=== PATIENT | female | born 1960 | race Caucasian/White ===

== ENCOUNTER 2024-07-22 08:36 | Outpatient (RCR) | payer MEDICARE, MEDICAID, SELFPAY | END 2024-07-26 23:59 | disposition home or self-care (01) | LOC: SCTC 08:36 | PROVIDERS: PCP Physician Assistant; Referring Provider Physician Assistant; Visit Provider Nurse Practitioner Family | DX: C50.812 Malignant neoplasm of overlapping sites of left female breast (principal); Z17.0 Estrogen receptor positive status [ER+]; Z17.21 Progesterone receptor positive status; Z17.32 Human epidermal growth factor receptor 2 negative status; Z90.12 Acquired absence of left breast and nipple; M85.80 Other specified disorders of bone density and structure, unspecified site | CPT/HCPCS: 99212; G0463 ==

== ENCOUNTER → 2024-08-13 | Outpatient (CLI) | payer MEDICARE, MEDICAID, SELFPAY ==
--- NOTE | 2024-08-13 14:00 | ECHO_ITS ---
Transthoracic Echo Report Ht (in): 60 Wt (lb): 174 Exam Location: Echo Lab Status: Preadmit Staple Laster: Rosa Guillen Indications: Procedure Performed: BP: / HR: Rhythm: Sinus Technical Quality: Fair MEASUREMENTS (Male / Female) Normal Values 2D ECHO LV Diastolic Diameter PLAX 3.5 cm 4.2 - 5.9 / 3.9 - 5.3 cm LV Systolic Diameter PLAX 2.5 cm IVS Diastolic Thickness 1.0 cm 0.6 - 1.0 / 0.6 - 0.9 cm LVPW Diastolic Thickness 1.0 cm 0.6 - 1.0 / 0.6 - 0.9 cm LV Relative Wall Thickness 0.6 LVOT Diameter 1.9 cm LA Volume Index 27.3 cm?/m? 16 - 28 cm?/m? Ascending Aorta Diameter 3.1 cm M-MODE Aortic Root Diameter MM 3.0 cm LA Systolic Diameter MM 3.7 cm LA Ao Ratio MM 1.2 AV Cusp Separation MM 2.2 cm DOPPLER AV Peak Velocity 116.0 cm/s AV Peak Gradient 5.4 mmHg AV Mean Gradient 3.0 mmHg AV Velocity Time Integral 23.0 cm LVOT Peak Velocity 89.4 cm/s LVOT Peak Gradient 3.2 mmHg LVOT Velocity Time Integral 18.7 cm AV Area Cont Eq vti 2.3 cm? AV Area Cont Eq pk 2.2 cm? MV Peak Velocity 93.3 cm/s MV Peak Gradient 3.5 mmHg MV Mean Velocity 51.4 cm/s MV Mean Gradient 1.0 mmHg MV Area PHT 3.4 cm? Mitral E Point Velocity 59.7 cm/s Mitral A Point Velocity 92.2 cm/s Mitral E to A Ratio 0.6 LV E' Lateral Velocity 8.8 cm/s Mitral E to LV E' Lateral Ratio 6.8 LV E' Septal Velocity 5.3 cm/s Mitral E to LV E' Septal Ratio 11.2 TR Peak Velocity 159.0 cm/s TR Peak Gradient 10.1 mmHg FINDINGS Left Ventricle Normal left ventricular size, wall thickness, systolic function with no obvious regional wall motion abnormalities. The ejection fraction is visually estimated at 55-60%. Right Ventricle The right ventricle is normal in size and systolic function. The estimated right ventricular systoli c pressure, 15 mmHg. RAP 5. Left Atrium The left atrium is normal by two-dimensional, color flow and Doppler imaging with no structural abnormalities, no thrombus formation present. Right Atrium The right atrium is normal by two-dimensional imaging, color flow and Doppler imaging with no struct ural abnormalities, no thrombus formation present. Atrial Septum The interatrial septum appears normal with no evidence of a shunt. Aorta The aorta is normal by two-dimensional, color flow and Doppler interrogation. Mitral Valve The mitral valve is normal by two-dimensional, color flow and Doppler interrogation. There is trace mitral valve regurgitation. Aortic Valve The aortic valve is trileaflet and normal by two-dimensional, color flow and Doppler interrogation. There is no significant aortic valve regurgitation. Tricuspid Valve The tricuspid valve is normal by two-dimensional, color flow and Doppler interrogation. There is tra ce tricuspid valve regurgitation. Pulmonic Valve There is no significant pulmonic valve regurgitation. Vessels The pulmonary artery appears normal. The inferior vena cava pulmonary and hepatic veins appear gee l. Pericardium The pericardium is normal by two-dimensional imaging. There is no significant pericardial effusion. CONCLUSIONS Indication: Malignant neoplasm left female breast. Normal LV size and function. Stage I diastolic dysfunction. Estimated EF 55-60% Normal RV size and function. Trace MR, TR. Noe Carlisle (Electronically Signed) Final Date: 14 August 2024 18:03
== END | disposition home or self-care (01) ==
LOC: SDIM 13:58
PROVIDERS: PCP Physician Assistant; Referring Provider Internal Medicine Hematology & Oncology; Visit Provider Internal Medicine Hematology & Oncology
DX: I08.1 Rheumatic disorders of both mitral and tricuspid valves (principal); C50.212 Malignant neoplasm of upper-inner quadrant of left female breast
CPT/HCPCS: 93306

== ENCOUNTER 2024-09-05 14:40 | Emergency (ER) | payer MEDICAID, SELFPAY ==
[2024-09-05 14:41] VITALS: BMI 34.2
[2024-09-05 14:58] VITALS: BP 156/98; PULSE 84; RESP 20; TEMP 38.2; O2SAT 95
--- NOTE | 2024-09-05 15:13 | XR_ITS ---
Examination: PA lateral chest 2 views TECHNIQUE: Upright PA lateral chest 2 views Exam date and time: September 05, 2024 1537 hours INDICATIONS: Onset chest pain today. FINDINGS: Normal heart size Subsegmental atelectasis left base Increased AP dimension chest Kyphosis dorsal spine No lobar pneumonia or pulmonary edema IMPRESSION: Hyperexpansion No lobar pneumonia or pulmonary edema
--- NOTE | 2024-09-05 15:13 | PD.EDRME ---
Rapid Medical Screening Exam RME Arrival date/time: 09/05/24 14:40 63-year-old female presents to the emergency department complaints of abdominal pain and fever Chief Complaint: Flu Like Symptoms Time Seen by Provider: 09/05/24 14:42 Vital signs: Vital Signs Temperature 100.8 F H 09/05/24 14:58 Pulse Rate 84 09/05/24 14:58 Respiratory Rate 20 09/05/24 14:58 Blood Pressure 156/98 H 09/05/24 14:58 Pulse Oximetry (%) 95 09/05/24 14:58 Oxygen Delivery Method Room Air 09/05/24 14:58
[2024-09-05 15:25] VITALS: TEMP 38.2
[2024-09-05] MEDS: ACETAMINOPHEN 500 MG TABLET 1000 MG PO (15:25)
[2024-09-05 16:59] LABS: Lactate (Lactic Acid) 1.1 mMol/L (0.4-2.0)
[2024-09-05 17:01] LABS: Basophils % (Auto) 0 % (0-2.5); Eosinophils % (Auto) 0 % (0-10); Hematocrit 37.1 % (36.0-46.0); Hemoglobin 12.7 g/dL (12.0-16.0); Immature Granulocytes % (Auto) 0 % (0-0); Immature Granulocytes Auto 0.04 Thou/mm3 (0.00-0.00); Lymphocytes # (Auto) 1.6 Thou/mm3 (1.0-4.8); Lymphocytes % (Auto) 11 % (10-50); Mean Corpuscular HGB Conc 34.2 g/dl (31.0-37.0); Mean Corpuscular Hemoglobin 27.9 pg (25.0-35.0); Mean Corpuscular Volume 82 fL (80-100); Monocytes # (Auto) 1.6 Thou/mm3 (0.0-0.8); Monocytes % (Auto) 11 % (0-12); Neutrophils # (Auto) 11.1 Thou/mm3 (1.8-7.7); Neutrophils % (Auto) 78 % (37-80); Nucleated Red Blood Cell % 0 /100 WBC (0); Platelet Count 175 Thou/mm3 (140-440); RDW Standard Deviation 42.4 fL (36.4-46.3); Red Blood Count 4.55 Miln/mm3 (4.00-5.20); White Blood Count 14.3 Thou/mm3 (3.6-11.0)
[2024-09-05 17:27] LABS: Alanine Aminotransferase 33 U/L (10-49); Albumin, Serum 4.3 gm/dL (3.4-4.8); Albumin/Globulin Ratio 1.6 (1.2-2.2); Alkaline Phosphatase 117 U/L (46-116); Anion Gap 8 (7-16); Aspartate Amino Transferase 32 U/L (0-34); BUN/Creatinine Ratio 16 Ratio (12-20); Blood Urea Nitrogen 23 mg/dL (9-23); Carbon Dioxide 22.7 mMol/L (20.0-31.0); Chloride 99 mMol/L (98-107); Creatinine (Component) 1.4 mg/dL (0.6-1.3); Estimated Creatinine Clearance 39.3 mL/min (>60); Globulin 2.7 gm/dL (2.3-3.5); Glucose 118 mg/dL (74-106); Osmolality,Calculated 265 (275-295); Potassium 3.9 mMol/L (3.4-5.1); Procalcitonin 0.88 ng/ml (0.0-0.49); Sodium 130 mMol/L (136-145); eGFR 43 See Note
[2024-09-05 18:32] LABS: Collection Type, Urine Clean Catch
[2024-09-05 18:52] LABS: Bilirubin,Urine Negative (Negative); Blood,Urine 1+ (Negative); Clarity,Urine Turbid (Clear/Hazy); Color,Urine Yellow (Lt Yel-Yel); Glucose, Urine Negative (Negative); Ketones,Urine Negative (Negative); Leukocyte Esterase,Urine Positive (Negative); Nitrite,Urine Negative (Negative); PH,Urine 5.5 (5.0-7.0); Protein,Urine 1+ (Neg - Trace); RBC,Urine 7 /hpf (0-3); Squamous Epithelial Cell,Urine 5 /hpf (0-5); Urobilinogen,Urine Negative mg/dL (0.0-1.0); WBC,Urine 47 /hpf (0-5)
--- NOTE | 2024-09-05 19:12 | EDNOTE_ITS ---
Upper Respiratory Inf. RME/HPI General Chief Complaint: Flu Like Symptoms Stated Complaint: CHILLS/ABD PAIN X 3 DAYS Time Seen by Provider: 09/05/24 14:42 Arrival date/time: 09/05/24 14:40 RME / HPI RME / HPI Narrative: 09/05/24 14:40 63-year-old female presents to the emergency department complaints of abdominal pain and fever ---- Dr. Juarez?s Main ED Evaluation: 63yo female with a history of breast CA s/p c ompletion of chemotherapy and radiation in 2023 accompanied by her presents to the ED for a chief complaint of fever and chills x 4 days. Patient states she's been having chills for the last four days, reporting she has lower abdominal pain this week due to having a prolapsed uterus. She reports associated dysuria, pyuria and nocturia 3-4x per night. She reports associated nausea. She denies any vomiting, runny nose, cough or any other associated symptoms. Related Data Home Medications ?Medication ?Instructions ?Recorded ?Confirmed atorvastatin 20 mg tablet 20 mg PO HS 08/14/23 10/16/23 lisinopril 20 mg tablet 20 mg PO DAILY 08/14/23 10/17/23 Previous Rx's ?Medication ?Instructions ?Recorded hydrocodone 10 mg-acetaminophen 1 tab PO Q6H PRN pain #40 tabs 10/17/23 325 mg tablet nitrofurantoin 100 mg PO Q12H 3 days #6 caps 09/05/24 monohydrate/macrocrystals 100 mg capsule (Macrobid) Allergies Allergy/AdvReac Type Severity Reaction Status Date / Time bee venom protein (honey bee) Allergy Severe Swelling Verified 09/05/24 14:43 of Lip/Tongue/Throat Penicillins Allergy Severe Swelling Verified 09/05/24 14:43 of Lip/Tongue/Throat Review of Systems Review of Systems Systems Reviewed: All systems reviewed, normal except as documented Narrative Review of Systems: Gen: + fever, + chills, no weight loss EYES: No discharge, no visual changes, no pain HEENT: No ear pain, no congestion, no sore throat PULM: No shortness of breath, no cough, no congestion CV: No chest pain, no dyspnea on exertion, no palpitations GI: + nausea, no vomiting, no diarrhea, + pain, no constipation : No frequency, no urgency, + dysuria, + nocturia Musc/skel: No joint pain, no back pain Skin: No rash. Warm and dry. Psyc: No hallucinations, no depression Heme/Lymph: No easy bleeding or bruising tendencies Neuro: No weakness, no headache Past Medical History Past Medical History NEUROLOGIC: Negative Neurological Disorders, Cerebrovascular Accident, Transient Ischemic Attacks (TIA), Dementia, Alzheimer's Disease, Parkinson's Disease, Br ain Tumor, Meningitis, Seizures, Epilepsy, Multiple Sclerosis, Cerebral Palsy, Amyotrophic Lateral Sclerosis (ALS/Nisa Gehrig's), Guillain-[place] Syndrome, Spina Bifida, Paralysis, Peripheral Neuropathy, Villa's Palsy, Subdural Hematoma, Migraine, Head Trauma, Spinal Cord Injury or Traumatic Brain Injury CARDIAC: Positive Cardiac Disorders, Hypercholesterolemia and Hypertension; Negative Myocardial Infarction, Cardiac Arrhythmia, Atrial Fibrillation, Angina, Heart Murmur, Coronary Artery Disease, Atherosclerotic Heart Disease, Peripheral Vascular Disease, Aneurysm, Congestive Heart Failure, Congenital Heart Disease, Valvular Heart Disease, Rheumatic Fever, Cardiomyopathy, Edema, Pericarditis, Cellulitis, Deep Vein Thrombosis, Hypotension or Varicose Veins RESPIRATORY: Positive Chronic Obstructive Pulmonary Disease (COPD), Asthma and Pneumonia; Negative Bronchitis, Emphysema, Pulmonary Fibrosis, Cystic Fibrosis, Tuberculosis, Pulmonary Embolism, Pulmonary Edema or Sleep Apnea GASTROINTESTINAL: Positive Gastrointestinal Disorders, Diverticulitis and Obesity; Negative Hepatitis, Cirrhosis, Pancreatitis, Celiac Disease, Gall Bladder Disease, Gastrointestinal Bleed, Esophageal Varices, Guerrero's Esophagus, Colitis, Ulcerative Colitis, Diverticulosis, Ulcer, Colorectal Cancer, Irritable Bowel, Crohn's Disease, Obstructive Bowel, Hiatal Hernia, Hemorrhoids or Gastroesophageal Reflux Disease GENITOURINARY: Positive Genitourinary Disorders and Kidney Stones; Negative Renal Disease, Polycystic Kidney Disease, Neurogenic Bladder, Inguinal Hernia or Dialysis REPRODUCTIVE: Positive Breast Cancer (LEFT BREAST CA WITH 2 LUMPS TO BE REMOVED IN AUGUST.) and Previous Pregnancies (); Negative Endometriosis, Pelvic Inflammatory Disease or Uterine Prolapse MUSCULOSKELETAL: Positive Musculoskeletal Disorders, Arthritis, Osteoporosis, Degenerative Disk Disease, Gout, Scoliosis and Fractures (SCREW TO LEFT BIG TOE.); Negative Muscular Dystrophy, Myasthenia Gravis, Marfan's Syndrome, Bone Cancer, Rheumatoid Arthritis, Carpal Tunnel Syndrome, Fibromyalgia, Degenerative Joint Disease, Osteomyelitis or Poliovirus ENT: Negative Cataracts, Glaucoma, Blind, Retinal Detachment, Macular Degeneration, Ear Infection, Deafness, Head Trauma or Eye Prosthesis ENDOCRINE: Negative Endocrine Disorders, Diabetes Mellitus Type 1, Diabetes Mellitus Type 2, Hypoglycemia, Garfield's Syndrome, [place]'s Disease, Hyperthyroidism, Hypothyroidism, Parathyroid Disease, Pituitary Disease, Systemic Lupus Erythematosus, Syndrome of Inappropriate Antidiuretic Hormone (SIADH), Adrenal Disease or Graves' Disease HEMATOLOGIC: Positive Blood Disorders and Anemia; Negative Leukemia, Hemophilia, Thalassemia, Sickle Cell Disease or Clotting Problems PSYCHO/SOCIAL: Negative Psychiatric Problems, Schizophrenia, Recreational Drug Use, Bipolar Disorder, Depression, Anxiety, Behavior Problems, Self-Mutilation, Attention Deficit Disorder, Attention Deficit Hyperactivity Disorder, Depression, Post Traumatic Stress Disorder or Eating Disorder OTHER HISTORY: Positive Chicken Pox, Cancer and Breast Cancer (LEFT BREAST CA WITH 2 LUMPS TO BE REMOVED IN AUGUST.); Negative Hospitalization, Autoimmune Disease, Down Syndrome, Autism, Developmental Delay, Shingles, Falls, Blood Transfusions, Blood Transfusion Reaction, Anesthesia Reactions, Organ Transplant, Chemotherapy, Radiation Therapy, Hyperbaric Therapy, MRSA, VRSA, Vancomycin-Resistant Enterococci, Human Immunodeficiency Virus (HIV), Rubella (Serbian Measles), Pertussis, Clostridium Difficile, Cervical Cancer, Colorectal Cancer, Lung Cancer or Ovarian Cancer Family History FAMILY HISTORY: Positive Family Respiratory Disorders (BROTHER HAS LUNG PROBLEMS AND A STROKE), Family Cardiac Disorders (FATHER HAD HEART PROBLEMS) and Family Cancer (FATHER HAD BLOOD CANCER); Negative Family Psychiatric Problems, Family Gastrointestinal Problems, Family Surgery or Family Anesthesia Reaction Surgical History SURGICAL: Positive Open Reduction Internal Fixation (left toe with screw), Tubal Ligation and Section (X2); Negative Cardiac Surgery, Open Heart Surgery, Coronary Artery Bypass Graft, Valve Replacement, Vascular Surgery, Coronary Stent, Cardiac Catheterization, Pacemaker, Angiogram, Auto Implanted Cardiovert Defib, Carotid Endarterectomy, Endocrine Surgery, Thyroidectomy, Ear Surgery, Tympanostomy Tube, Eye Surgery, Nose Surgery, Oral Surgery, Tonsillectomy, Adenoidectomy, Cochlear Implant, Corneal Transplant, Throat Surgery, Abdominal Surgery, Tracheostomy, Gastric Bypass Surgery, Gastrostomy, Bowel Surgery, Nephrectomy, Transurethral Resection, Joint Replacement, Amputation, Arthroscopy, Neurologic Surgery, Brain Shunt, Mastectomy, Lumpectomy, Hysterectomy or Organ Transplant Social History SMOKING STATUS: Never smoker ED Exam Narrative Physical exam: GENERAL APPEARANCE: AxOx4, generally well-appearing, no acute distress. HEENT: NC, AT. MMM. EOMI, clear conjunctiva, oropharynx clear. NECK: Supple without lymphadenopathy. No stiffness or restricted ROM. HEART: Normal rate and regular rhythm, normal S1/S1, no m/r/g LUNGS: CTAB, moving air well. No crackles or wheezes are heard. ABDOMEN: Soft, nontender, nondistended with good bowel sounds heard. BACK: No midline C/T/L spine pain or deformity, No CVAT, no obvious deformity. EXTREMITIES: Without cyanosis, clubbing or edema. MUSCULOSKELETAL: FROM of all major joints, no chest tenderness NEUROLOGICAL: Grossly nonfocal. Alert and oriented, moving all 4 extremities. CN not formally tested but appear grossly intact. Observed to ambulate with normal gait. Skin: Warm and dry without any rash. Course Course Course Narrative: CXR is ordered for determining the etiology of fever. Quality Measures none Orders Category Date Time Status Bedside Influenza A&B Antigen Test NOW Care 09/05/24 15:13 Completed XR chest 2V Stat Exams 09/05/24 15:13 Completed Blood Culture (Lab) Stat Lab 09/05/24 16:51 Received CBC Stat Lab 09/05/24 16:51 Completed Comprehensive Metabolic Panel Stat Lab 09/05/24 16:51 Completed Lactate (Lactic Acid) Stat Lab 09/05/24 16:51 Completed Procalcitonin Stat Lab 09/05/24 16:51 Completed Urinalysis Stat Lab 09/05/24 18:25 Completed Urine Culture Stat Lab 09/05/24 18:25 Received Acetaminophen Tab [Tylenol ES Tab] Med 09/05/24 15:13 Discontinued 1,000 mg PO X1 ONE Vital Signs Vital signs: Vital Signs Temperature 100.8 F H 09/05/24 14:58 Pulse Rate 84 09/05/24 14:58 Respiratory Rate 20 09/05/24 14:58 Blood Pressure 156/98 H 09/05/24 14:58 Pulse Oximetry (%) 95 09/05/24 14:58 Oxygen Delivery Method Room Air 09/05/24 14:58 Pulse ox is 95% on room air, which is normal according to my interpretation. Upper Respiratory Infection MDM Narrative MDM Narrative:: Scribe Attestation: 09/05/24 - Sherri Sylvester am scribing for and in the presence of Dr. Juarez. Patient data External records reviewed:: [facility] previous records (Per chart review, patient has no relevant previous ED visits.) Clinical information provided by:: patient Social determinants that could affect healthcare access:: none Patient has the following chronic illnesses:: breast CA How is presenting disease/condition affected by chronic disease/condition?: uneffected by Evaluation data The following diagnostics were reviewed and interpreted by me:: lab results and radiology exam(s) Lab and/or radiology exams considered but not ordered:: none Interpretation Summary: WBC count is elevated at 14.3, Creatinine is slightly elevated at 1.4, Lactic Acid is normal, UA shows 7 RBCs and 47 WBCs, according to my interpretation. ---- [facility] Report Signed Patient: ANNE LEE Record#: [id number] Birthdate: 1960 Age/Sex: 63 / F Location: [facility] Attending Dr: Ordering Physician: Bret QUINTANILLA)Dereje NP Date of Service: 09/05/24 Procedure(s): XR chest 2V Accession Number(s): [id number] cc: Bret QUINTANILLA),Dereje LÓPEZ; Chris Gerardo MD~ Examination: PA lateral chest 2 views TECHNIQUE: Upright PA lateral chest 2 views Exam date and time: September 05, 2024 1537 hours INDICATIONS: Onset chest pain today. FINDINGS: Normal heart size Subsegmental atelectasis left base Increased AP dimension chest Kyphosis dorsal spine No lobar pneumonia or pulmonary edema IMPRESSION: Hyperexpansion No lobar pneumonia or pulmonary edema Dictated By: Chris Gerardo MD Signed By: <Electronically signed by Chris Gerardo MD in OV> 09/05/24 1601 Medications / Prescriptions Medications or Prescriptions considered but not ordered:: none Medication administrations:: Medication Administration History Discontinued Medications Acetaminophen (Acetaminophen 500 Mg Tablet) 1,000 mg PO X1 ONE Stop: 09/05/24 15:14 Last Admin: 09/05/24 15:25 Dose: 1,000 mg Documented By: OA see above Consultations Consultation(s) initiated? (list below): No Diagnosis Upper Respiratory Differential Diagnosis: other (UTI, cystitis, prolapsed uterus) Most likely diagnosis given after review of the tests above:: see below Admission Indicated Admission indicated?: not indicated Explain why admission is indicated or not indicated:: Admission criteria not met. Patient is stable for outpatient management. Admission Request Was there a request for admission?: No Disposition Plan Disposition Plan: Discharge Discharge Attestation Discharge Attestation: The patient and all family members were given an opportunity to ask questions and understood the discharge instructions. Discharge instructions specifically effects, indications for sooner follow up or return to the emergency department, and the expected course of current diagnosis. Patient condition: Stable Discharge Plan Plan Patient Disposition: HOME (Self Care) Prescriptions/Referrals Prescriptions/Med Rec: New nitrofurantoin monohyd/m-cryst [Macrobid] 100 mg capsule 100 mg PO Q12H 3 Days Qty: 6 0RF Rx Instructions: must administer with a meal/food No Action hydrocodone-acetaminophen 10-325 mg tablet 1 tab PO Q6H MDD 4 PRN (Reason: pain) Qty: 40 0RF lisinopril 20 mg tablet 20 mg PO DAILY Patient Comments: TAKE 1 TABLET BY MOUTH ONCE DAILY atorvastatin 20 mg tablet 20 mg PO HS Patient Comments: TAKE 1 TABLET BY MOUTH AT BEDTIME Referrals: Karo Merino PA-C [Primary Care Provider] - In 1 week Problem List Clinical Impression: UTI (urinary tract infection) Patient/Caregiver Discharge Instructions Education Materials: ED CYSTITIS Female Adult Additional Instructions: Follow-up with your primary care provider in 3-5 days for recheck. You can return to the emergency department sooner if symptoms worsen or for any new or concerning issues. Print Language: Amharic Stand Alone Forms: Leticia Award Info., Patient Portal Info Letter
[2024-09-05 19:25] VITALS: BP 150/90; PULSE 79; RESP 15; TEMP 37.1; O2SAT 95
[2024-09-05 19:26] VITALS: TEMP 37.1
== END 2024-09-05 19:27 | disposition home or self-care (01) ==
PROVIDERS: Nurse Practitioner Primary Care; Emergency Provider Emergency Medicine; PCP Physician Assistant
DX: N39.0 Urinary tract infection, site not specified (principal)
CPT/HCPCS: 36415; 71046; 80053; 81001; 83605; 84145; 85025; 87040; 87077; 87086; 87186; 99283; A9270

== ENCOUNTER 2024-09-08 07:30 | Inpatient (IN) | payer MEDICARE, MEDICAID, SELFPAY ==
[2024-09-08] VITALS (9 sets, daily range): BP systolic 140–161; BP diastolic 88–100; PULSE 88–110; RESP 16–20; TEMP 36.9–38.4; O2SAT 92–99; BMI 34.0; BMI 33.7
--- NOTE | 2024-09-08 08:00 | PD.EDFMALE ---
ED Female Urogenital RME/HPI General Chief complaint: Urogenital-Female Stated complaint: ABD / BACK PAIN; DC SUNDAY FOR UTI Time Seen by Provider: 09/08/24 07:36 Arrival date/time: 09/08/24 07:30 RME / HPI RME / HPI Narrative: 63 year old female presents to the ED for evaluation of abdominal and back pain today. Pain described as aching in sensation that is located throughout abdomen and left flank, rating as moderate. Accompanied by fevers, chills, nausea, and dysuria. Reports she was evaluated here 3 days ago and sent home; diagnosed with a UTI and started on Macrobid. States she has taken the antibiotic and feels her symptoms are worsening. Related Data Home Medications ?Medication ?Instructions ?Recorded ?Confirmed atorvastatin 20 mg tablet 20 mg PO HS 08/14/23 10/16/23 lisinopril 20 mg tablet 20 mg PO DAILY 08/14/23 10/17/23 Previous Rx's ?Medication ?Instructions ?Recorded hydrocodone 10 mg-acetaminophen 1 tab PO Q6H PRN pain #40 tabs 10/17/23 325 mg tablet Allergies Allergy/AdvReac Type Severity Reaction Status Date / Time bee venom protein (honey bee) Allergy Severe Swelling Verified 09/08/24 07:32 of Lip/Tongue/Throat Penicillins Allergy Severe Swelling Verified 09/08/24 07:32 of Lip/Tongue/Throat Review of Systems Review of Systems Narrative Review of Systems: GEN: + fever, + chills, no weight loss EYES: No discharge, no visual changes, no pain HEENT: No ear pain, no congestion, no sore throat PULM: No shortness of breath, no cough, no congestion CV: No chest pain, no dyspnea on exertion, no palpitations GI: + nausea, no vomiting, no diarrhea, + pain, no constipation : No frequency, no urgency and + dysuria MUSC/SKEL No joint pain, + back pain SKIN: No rash PSYCH: No hallucinations, no depression HEME/LYMPH: No easy bleeding or bruising tendencies NEURO: No weakness, no headache Past Medical History Past Medical History CARDIAC: Positive Cardiac Disorders, Hypercholesterolemia and Hypertension RESPIRATORY: Positive Asthma and Pneumonia GASTROINTESTINAL: Positive Gastrointestinal Disorders, Diverticulitis and Obesity GENITOURINARY: Positive Genitourinary Disorders and Kidney Stones REPRODUCTIVE: Positive Breast Cancer and Previous Pregnancies MUSCULOSKELETAL: Positive Musculoskeletal Disorders, Arthritis, Osteoporosis, Degenerative Disk Disease, Gout, Scoliosis and Fractures HEMATOLOGIC: Positive Blood Disorders and Anemia OTHER HISTORY: Positive Chicken Pox, Cancer and Breast Cancer Family History FAMILY HISTORY: Positive Family Respiratory Disorders, Family Cardiac Disorders and Family Cancer Surgical History SURGICAL: Positive Open Reduction Internal Fixation, Tubal Ligation and Section Social History SMOKING STATUS: Never smoker ED Exam Narrative Physical exam: GENERAL APPEARANCE: Well hydrated, well nourished, in no acute distress. VITALS: All vitals were reviewed, febrile at 101.2F, pulse ox is 99% on room air which is normal according to my interpretation. HEENT: Normocephalic, atramatic, EOMI, EACs are patent. There is no bulge or retraction. Throat without erythema or exudate. Moist oromucosa. No jaundice NECK: Supple, no JVD or bruits. CARDIOVASCULAR: Heart regular without S3-S4 or murmur. No rubs or gallops. LUNGS/CHEST: Clear to auscultation bilaterally. No rales, rhonchi, or wheezing. Normal inspection. ABDOMEN: Soft, diffuse but most severe in the left lower quadrant, left flank tenderness, normal bowel sounds. No pulsatile masses. No rebound, rigidity, or guarding. No incarcerated hernia. EXTREMITIES: Normal inspection and palpation. No edema, clubbing, or cyanosis. Intact CSM SKIN: Warm and dry without rashes. Normal inspection. MUSCULOSKELETAL: Normal inspection. No gross deformity, full ROM all extremities NEURO: Alert and oriented x3. Cranial nerves II through XII grossly intact. There are no other motor or sensory deficits noted. PSYCHIATRIC: Normal mood and affect. No psychosis. Course Quality Measures Current suspected stage: sepsis Possible source: genitourinary Blood cultures ordered: completed in ED Antibiotic ordered: Yes Pertinent labs: 09/08/24 08:44 Lactic Acid 1.6 mMol/L (0.4-2.0) Procalcitonin Pending sepsis Orders Category Date Time Status Bedside COVID-19 Antigen Test NOW Care 09/08/24 08:10 Active Bedside Influenza A&B Antigen Test NOW Care 09/08/24 09:[address] Screening NOW Care 09/08/24 08:13 Active Chang [Urinary Catheter] QS Care 09/08/24 08:[address] abdomen pelvis w con Stat Exams 09/08/24 08:10 Completed Blood Culture (Lab) Stat Lab 09/08/24 08:11 Received CBC Stat Lab 09/08/24 08:44 Completed CMP [Comprehensive Metabolic Panel] Stat Lab 09/08/24 08:44 Results Lactic Acid [Lactate (Lactic Acid)] Stat Lab 09/08/24 08:44 Completed Lipase Stat Lab 09/08/24 08:44 Results Procalcitonin Stat Lab 09/08/24 08:44 Results UA, C/S IF [Urinalysis, C/S if Indicated] Stat Lab 09/08/24 08:34 Completed Urine Culture Stat Lab 09/08/24 08:34 Received Acetaminophen Tab [Tylenol ES Tab] Med 09/08/24 08:10 Discontinued 1,000 mg PO X1 ONE Sodium Chloride 0.9% 1000 ml [Ns] 2,000 ml Med 09/08/24 08:14 Discontinued IV 500 mls/hr cefTRIAXone/D5w 1gm IV premix [Rocephin/D5w 1gm IV Med 09/08/24 08:14 Discontinued premix] 50 ml IV X1 Vital Signs Vital signs: Vital Signs Temperature 98.6 F 09/08/24 07:36 Pulse Rate 91 09/08/24 07:36 Respiratory Rate 20 09/08/24 07:36 Blood Pressure 146/91 H 09/08/24 07:36 Pulse Oximetry (%) 95 09/08/24 07:36 Oxygen Delivery Method Room Air 09/08/24 07:36 Urogenital - Female MDM Narrative MDM Narrative:: IBarb, chhaya scribing for and in the presence of Dr. Kerns. CBC is negative. CMP and lipase are negative. Lactic acid negative. Procalcitonin is pending. COVID-19 and influenza are negative. UA is negative for acute. She has been on Macrobid for the last [address] abdomen was performed and resulted please see below Upon arrival to the emergency department the patient spiked to 101.2. Septic alert was called for. Treatment plan including IV fluid IV antibiotic and Tylenol. The patient has improved. So that by the time of this dictation which is about 1:45 PM, her blood pressure is 159/96, pulse of 88 regular rate and rhythm. Respiration of 19, temperature of 98.8 and O2 saturation at 97% on room air. 1:45 PM, I spoke to and discussed with , resident of Dr. Enriquez hospitalist on-call. She agrees to assess the patient for admission. Critical care time is approximately 35 minutes excluding any procedure. The high probability of sudden, clinically significant deterioration in the patient?s condition required the highest level of my preparedness to intervene urgently. The services I provided to this patient were to treat and/or prevent clinically significant deterioration. Services included the following: chart data review, reviewing nursing notes and/or old charts, documentation time, storage management consultant collaboration regarding findings and treatment options, medication orders and management, direct patient care, vital sign assessments and ordering, interpreting and reviewing diagnostic studies and lab tests. Aggregate critical care time includes only time during which I was engaged in work directly related to the patient?s care, as described above, whether at bedside or elsewhere in the Emergency Department. It did not include time spent performing other reported procedures or the services of residents, students, nurses or physician assistants. Patient data External records reviewed:: [facility] previous records (I reviewed ED visit on 09/05/2024 ) Clinical information provided by:: patient Social determinants that could affect healthcare access:: none Patient has the following chronic illnesses:: Hypertension, hyperlipidemia, carcinoma of the left breast, s/p left breast partial mastectomy, underwent chemotherapy How is presenting disease/condition affected by chronic disease/condition?: exacerbated by Evaluation data The following diagnostics were reviewed and interpreted by me:: lab results and radiology exam(s) Lab and/or radiology exams considered but not ordered:: None Interpretation Summary: Ordering Physician: Dereje Kerns MD Date of Service: 09/08/24 Procedure(s): CT abdomen pelvis w con Accession Number(s): [id number] cc: Karo Merino PA-C; Chris Gerardo MD; Dereje Kerns MD~ Examination: CT abdomen with intravenous contrast CT pelvis with intravenous contrast 2-D coronal reconstructions 2-D sagittal reconstructions Date and time of exam:September 08, 1999 2548 hours INDICATIONS: Abdominal pain and fever today. CTDI: vol (mGy) 9.75 DLP: (mGycm) 498 Technique: Multiple axial sections of the abdomen and pelvis have been obtained. 64 slice high-resolution scanner used. 3 mm axial sections have been obtained, post intravenous injection 52 cc [id number] 2-D sagittal, coronal reconstructions obtained. Low dose protocols were performed. One or more of the following dose reduction techniques were used; automated exposure control, adjustment of the mA and/or KV according to patient size, use of iterative reconstruction technique. Findings: No focal liver or splenic lesions Contracted gallbladder No pancreatic or adrenal mass Bilateral edematous appearing kidneys with mildly dilated renal pelvicalyceal systems No ureteral calculi Aorta normal size Normal appendix No bowel obstruction Colonic diverticulosis Anteverted uterus, cervix does appear prominent Urinary Chang catheter within contracted urinary bladder Grade 1 spondylolisthesis L5 on S1 Advanced degenerative disc disease L2-L3, L5-S1 IMPRESSION: Bilateral edematous kidneys, consider bilateral pyelonephritis No ureteral calculi Normal appendix No bowel obstruction Colonic diverticulosis, no diverticulitis Poorly defined prominence of the cervix, recommend transvaginal pelvic sonography follow-up Dictated By: Chris Gerardo MD Signed By: <Electronically signed by Chris Gerardo MD in OV> 09/08/24 1254 Medications / Prescriptions Medications or Prescriptions considered but not ordered:: None Medication administrations:: Medication Administration History Discontinued Medications Acetaminophen (Acetaminophen 500 Mg Tablet) 1,000 mg PO X1 ONE Stop: 09/08/24 08:11 Last Admin: 09/08/24 08:35 Dose: 1,000 mg Documented By: KILEY Ceftriaxone Sodium/Dextrose (Rocephin/D5w 1gm Iv Premix) 50 mls @ 100 mls/hr IV X1 ONE Stop: 09/08/24 08:43 Last Infusion: 09/08/24 09:19 Dose: Infused Documented By: Admin: 09/08/24 08:47 Dose: 100 mls/hr Documented By: KILEY Sodium Chloride (Ns) 2,000 mls @ 500 mls/hr IV .Q4H ONE Stop: 09/08/24 12:13 Last Admin: 09/08/24 08:45 Dose: 500 mls/hr Documented By: KILEY See above Consultations Consultation(s) initiated? (list below): Yes Consultation #1 (Physician, Specialty, Details): I spoke with resident Dr. Bai working with Dr. Enriquez as noted above. Diagnosis Urogenital Female Differential Diagnosis: urinary tract infection, cystitis and other (pyelonephritis) Most likely diagnosis given after review of the tests above:: Sepsis alert. Pyelonephritis Admission Indicated Admission indicated?: indicated Admission Request Was there a request for admission?: Yes Admission Attestation Admission request attestation: Discussed case with [] from Hospitalist service regarding admission. Discussed patients ED course, exam findings, labs, and radiology results. The Hospitalist [agrees,declines] to accept the patient for admission. Disposition Plan Disposition Plan: Admit Discharge Plan Plan Patient Disposition: Admit Acute Care w/in Hospital Disposition Comment: Stable for admit Prescriptions/Referrals Prescriptions/Med Rec: No Action hydrocodone-acetaminophen 10-325 mg tablet 1 tab PO Q6H MDD 4 PRN (Reason: pain) Qty: 40 0RF lisinopril 20 mg tablet 20 mg PO DAILY Patient Comments: TAKE 1 TABLET BY MOUTH ONCE DAILY atorvastatin 20 mg tablet 20 mg PO HS Patient Comments: TAKE 1 TABLET BY MOUTH AT BEDTIME Referrals: Karo Merino PA-C [Primary Care Provider] - In 1 week Problem List Clinical Impression: Sepsis, Pyelonephritis Patient/Caregiver Discharge Instructions Print Language: Tajik Stand Alone Forms: Leticia Award Info., Patient Portal Info Letter
--- NOTE | 2024-09-08 08:10 | XR_ITS ---
Examination: CT abdomen with intravenous contrast CT pelvis with intravenous contrast 2-D coronal reconstructions 2-D sagittal reconstructions Date and time of exam:September 08, 1999 2548 hours INDICATIONS: Abdominal pain and fever today. CTDI: vol (mGy) 9.75 DLP: (mGycm) 498 Technique: Multiple axial sections of the abdomen and pelvis have been obtained. 64 slice high-resolution scanner used. 3 mm axial sections have been obtained, post intravenous injection 52 cc Isovue-370 2-D sagittal, coronal reconstructions obtained. Low dose protocols were performed. One or more of the following dose reduction techniques were used; automated exposure control, adjustment of the mA and/or KV according to patient size, use of iterative reconstruction technique. Findings: No focal liver or splenic lesions Contracted gallbladder No pancreatic or adrenal mass Bilateral edematous appearing kidneys with mildly dilated renal pelvicalyceal systems No ureteral calculi Aorta normal size Normal appendix No bowel obstruction Colonic diverticulosis Anteverted uterus, cervix does appear prominent Urinary Chang catheter within contracted urinary bladder Grade 1 spondylolisthesis L5 on S1 Advanced degenerative disc disease L2-L3, L5-S1 IMPRESSION: Bilateral edematous kidneys, consider bilateral pyelonephritis No ureteral calculi Normal appendix No bowel obstruction Colonic diverticulosis, no diverticulitis Poorly defined prominence of the cervix, recommend transvaginal pelvic sonography follow-up
[2024-09-08] MEDS: ACETAMINOPHEN 500 MG TABLET 1000 MG PO (08:35)
[2024-09-08] MEDS: SODIUM CHLORIDE 0.9% 1000 ML 2,000 ML 500 ML IV (08:45)
[2024-09-08 08:46] LABS: Collection Type, Urine Catheter; Squamous Epithelial Cell,Urine 0 /hpf (0-5)
[2024-09-08] MEDS: cefTRIAXone/D5w 1gm IV premix 50 ML IV (08:47)
[2024-09-08 08:51] LABS: Bilirubin,Urine Negative (Negative); Blood,Urine Trace (Negative); Clarity,Urine Clear (Clear/Hazy); Color,Urine Yellow (Lt Yel-Yel); Glucose, Urine Negative (Negative); Ketones,Urine Negative (Negative); Leukocyte Esterase,Urine Positive (Negative); Nitrite,Urine Negative (Negative); Protein,Urine 2+ (Neg - Trace); RBC,Urine 3 /hpf (0-3); Specific Gravity,Urine 1.023 (1.001-1.035); WBC,Urine 13 /hpf (0-5)
[2024-09-08 08:52] LABS: Culture Indicated,Urine Yes
[2024-09-08 08:57] LABS: Lactate (Lactic Acid) 1.6 mMol/L (0.4-2.0)
[2024-09-08 08:59] LABS: Basophils % (Auto) 0 % (0-2.5); Eosinophils % (Auto) 0 % (0-10); Hematocrit 39.3 % (36.0-46.0); Hemoglobin 13.1 g/dL (12.0-16.0); Immature Granulocytes % (Auto) 0 % (0-0); Immature Granulocytes Auto 0.03 Thou/mm3 (0.00-0.00); Lymphocytes # (Auto) 0.9 Thou/mm3 (1.0-4.8); Lymphocytes % (Auto) 9 % (10-50); Mean Corpuscular HGB Conc 33.3 g/dl (31.0-37.0); Mean Corpuscular Hemoglobin 27.6 pg (25.0-35.0); Mean Corpuscular Volume 83 fL (80-100); Monocytes # (Auto) 0.7 Thou/mm3 (0.0-0.8); Monocytes % (Auto) 7 % (0-12); Neutrophils % (Auto) 83 % (37-80); Nucleated Red Blood Cell % 0 /100 WBC (0); Platelet Count 164 Thou/mm3 (140-440); RDW Standard Deviation 43.9 fL (36.4-46.3); Red Blood Count 4.75 Miln/mm3 (4.00-5.20); White Blood Count 9.7 Thou/mm3 (3.6-11.0)
[2024-09-08 10:48] LABS: Alanine Aminotransferase 34 U/L (10-49); Albumin, Serum 4.7 gm/dL (3.4-4.8); Albumin/Globulin Ratio 1.6 (1.2-2.2); Alkaline Phosphatase 167 U/L (46-116); Anion Gap 10 (7-16); Aspartate Amino Transferase 35 U/L (0-34); BUN/Creatinine Ratio 18 Ratio (12-20); Bilirubin,Total 0.6 mg/dL (0.3-1.2); Blood Urea Nitrogen 21 mg/dL (9-23); Calcium 9.7 mg/dL (8.3-10.6); Calcium (Corrected) 9.7 mg/dL (8.5-10.1); Carbon Dioxide 26.3 mMol/L (20.0-31.0); Chloride 99 mMol/L (98-107); Creatinine (Component) 1.2 mg/dL (0.6-1.3); Estimated Creatinine Clearance 45.8 mL/min (>60); Glucose 109 mg/dL (74-106); Lipase 34 U/L (12-53); Osmolality,Calculated 274 (275-295); Potassium 4.7 mMol/L (3.4-5.1); Sodium 135 mMol/L (136-145); Total Protein 7.7 gm/dL (5.7-8.2); eGFR 52 See Note
[2024-09-08] MEDS: HYDROcodone/APAP 5/325 TABLET 1 TAB PO ×2 (14:24→21:48)
[2024-09-08] MEDS: ALBUTEROL/IPRATROPIUM (Duoneb) RT SOL 3 ML NEBU INH (14:33)
[2024-09-08] MEDS: ENOXAPARIN SOD INJ 40 MG/0.4 ML SYRINGE SC (14:35)
--- NOTE | 2024-09-08 15:10 | ESHP_ITS ---
<Statement entered by Gama Bai MD - 09/08/24 16:43> This patient is a 63-year-old female with past medical history of invasive ductal cancer currently cancer free from last 6-month, prolapsed uterus, COPD presented with bilateral flank pain and nausea and vomiting. Patient also had a fever spike. Patient was recently discharged after getting Macrobid for UTI 3 days ago. Patient has a history of prolapsed uterus however Chang catheter was placed in. Blood pressure was still mildly elevated. Labs showed white count 9.7. Kidney function showed EVERARDO improved since 3 days with BUN [address] abdomen showed bilateral pyelonephritis. Previous urine culture grew ESBL UTI and patient is allergic to penicillin therefore meropenem was started and blood cultures/urine cultures were ordered. Pain manage has been added. Patient received 2 L bolus of fluids in the ED. Patient also has a history of COPD therefore DuoNebs were given. Med rec pending. We ordered transvaginal ultrasound due to incidental finding of poorly defined prominence on cervix. Will likely follow-up on that. All labs and orders were reviewed. I saw and examined the patient, and I agree with current management stated by Dr Marilu MD,PGY1. Plan of care was discussed with the attending physician and resident physician. Disclaimer: Despite multiple revisions, due to the dictation software being used, the document bellow may not be free of grammatical errors including phonetic/typographic errors. However, this does not deter from our commitment to providing health care in the patient's best interest in mind. Dr. Richardson MD, PGY 2 Documentation for date of: 09/08/24 HPI History of Present Illness Chief complaint: Flank pain History of present illness: 63 y/o F with PMHx significant for hypertension, COPD, prolapsed uterus, breast cancer 1 year ago s/p treatment presenting to the ED from home with chief complaint of worsening UTI and bilateral flank pain. Patient presented to ED on Sunday with burning urination, was prescribed Macrobid and told to return if symptoms worsened. Despite adherence to oral antibiotics patient's UTI symptoms worsen, and she developed nausea, vomiting, fever spikes, and bilateral flank pain prompting ED visit. Patient denies shortness of breath, weakness, fatigue. ED COURSE: Labs significant for: WBC 9.7, BUN 21, creatinine 1.2, EGFR 52, lactic acid 1.6. Urine culture from Sunday growing ESBL. Imaging significant for: A/P CT showing bilateral edematous kidneys indicating pyelonephritis, unspecified prominence of cervix. Patient received 2 L normal saline at 500 mL/h, 1 g Tylenol, Rocephin in the ED. Patient did not meet SIRS criteria. PMH: Breast cancer s/p treatment, HTN, COPD, prolapse uterus PSH: 2 C-sections, breast cancer resection. SH: Denies tobacco or illicit drug use. Occasional alcohol use, 2 drinks every few weeks. Allergies:?Penicillin Medications: Lisinopril, albuterol as needed Review of Systems Review of Systems Systems Reviewed: All systems reviewed, normal except as documented Past Medical History Past Medical History Comments PMH COMMENT: PMH: Breast cancer s/p treatment, HTN, COPD, prolapse uterus PSH: 2 C-sections, breast cancer resection. SH: Denies tobacco or illicit drug use. Occasional alcohol use, 2 drinks every few weeks. Allergies:?Penicillin Medications: Lisinopril, albuterol as needed Exam Vital Signs Temp Pulse Resp BP Pulse Ox O2 Del Method 100.6 F H 99 18 140/96 H 99 Room Air 09/08/24 14:20 09/08/24 14:41 09/08/24 14:41 09/08/24 14:20 09/08/24 14:41 09/08/24 14:20 Narrative Exam PE: Gen: Well-developed and well-nourished. Mildly distressed. HEENT: NCAT, PERRLA, EOMI, MMM, anicteric conjunctivae. CVS: normal S1 and S2. RRR. No M/R/G. Resp: CTA B/L. No rhonchi, rales, crackles or wheezing. Abd: soft, non-distended. Mild diffuse tenderness, worse in left upper quadrant. MSK: Good ROM in BUE & BLE. No edema or rash. Bilateral CVA tenderness. Neuro: CN II-XII grossly intact. Strength 5/5 in BUE & BLE. Alert and oriented x3. Psych: appropriate mood and affect. Results: Labs 09/08/24 08:44 09/08/24 08:44 Labs: Short CBC 09/08/24 Range/Units 08:44 WBC 9.7 (3.6-11.0) Thou/mm3 Hgb 13.1 (12.0-16.0) g/dL Hct 39.3 (36.0-46.0) % Plt Count 164 (140-440) Thou/mm3 BMP 09/08/24 08:44 Sodium 135 L Potassium 4.7 D Chloride 99 Carbon Dioxide 26.3 BUN 21 Creatinine 1.2 Glucose 109 H Calcium 9.7 Liver Function 09/08/24 Range/Units 08:44 Total Bilirubin 0.6 (0.3-1.2) mg/dL AST 35 H (0-34) U/L ALT 34 (10-49) U/L Alkaline Phosphatase 167 H D (46-116) U/L Albumin 4.7 (3.4-4.8) gm/dL Urine 09/08/24 Range/Units 08:34 Urine Color Yellow (Lt Yel-Yel) Urine Clarity Clear (Clear/Hazy) Urine pH 6.0 (5.0-7.0) Ur Specific [place] 1.023 (1.001-1.035) Urine Protein 2+ A (Neg - Trace) Urine Glucose (UA) Negative (Negative) Quality Measures Quality Measures sepsis Current suspected stage: ruled out Possible source: genitourinary Blood cultures ordered: completed in ED Antibiotic ordered: Yes Medications Home Medications and Allergies Home Medications ?Medication ?Instructions ?Recorded ?Confirmed ?Type lisinopril 20 mg tablet 40 mg PO DAILY 08/14/23 09/08/24 History carvedilol 3.125 mg tablet 3.125 mg PO BID 09/08/24 09/08/24 History nitrofurantoin 100 mg PO BID 09/08/24 09/08/24 History monohydrate/macrocrystals 100 mg capsule Allergies Allergy/AdvReac Type Severity Reaction Status Date / Time bee venom protein (honey bee) Allergy Severe Swelling Verified 09/08/24 07:32 of Lip/Tongue/Throat Penicillins Allergy Severe Swelling Verified 09/08/24 07:32 of Lip/Tongue/Throat Visit Medications Acetaminophen (Acetaminophen 325 Mg Tablet) 650 mg PO Q6H PRN PRN Reason: Fever >100.4 or pain 1-3 Stop: 10/08/24 14:08 Hydrocodone Bitart/Acetaminophen (Hydrocodone/Apap 5/325 Tablet) 1 tab PO Q4HR PRN PRN Reason: PAIN SCALE 4-10(Mod-Sev Stop: 09/13/24 14:08 Last Admin: 09/08/24 14:24 Dose: 1 tab Albuterol/Ipratropium (Albuterol/Ipratropium (Duoneb) Rt Martha 3 Ml Nebu) 3 ml INH Q2HR PRN PRN Reason: SHORTNESS OF BREATH OR WHEEZE Stop: 10/08/24 14:08 Last Admin: 09/08/24 14:33 Dose: 3 ml Enoxaparin Sodium (Enoxaparin Sod Inj 40 Mg/0.4 Ml Syringe) 40 mg SC QDAY AMAN Stop: 09/22/24 14:14 Last Admin: 09/08/24 14:35 Dose: 40 mg Meropenem 1,000 mg/ Sodium (Chloride) 50 mls @ 100 mls/hr IV Q12HR [facility] Stop: 09/15/24 21:59 Ondansetron HCl (Ondansetron Inj 2 Mg/Ml Inj 2 Ml) 4 mg IV Q6H PRN; Protocol PRN Reason: NAUSEA OR VOMITING Stop: 10/08/24 14:08 Discontinued Medications Acetaminophen (Acetaminophen 500 Mg Tablet) 1,000 mg PO X1 ONE Stop: 09/08/24 08:11 Last Admin: 09/08/24 08:35 Dose: 1,000 mg Ceftriaxone Sodium/Dextrose (Rocephin/D5w 1gm Iv Premix) 50 mls @ 100 mls/hr IV X1 ONE Stop: 09/08/24 08:43 Last Infusion: 09/08/24 09:19 Dose: Infused Sodium Chloride (Ns) 2,000 mls @ 500 mls/hr IV .Q4H ONE Stop: 09/08/24 12:13 Last Infusion: 09/08/24 14:18 Dose: Infused Assessment & Plan Plan 63 y/o F with PMHx significant for hypertension, COPD, prolapsed uterus, breast cancer 1 year ago s/p treatment presenting to the ED from home with chief complaint of worsening UTI and bilateral flank pain, admitted for pyelonephritis. #Pyelonephritis #Sepsis ruled out Patient presented to the ED on 09/05 with burning urination, was given Macrobid and sent home. Patient returned 09/08 due to worsening of symptoms, burning urination, and development of fevers, nausea/vomiting, flank pain. CT A/P shows bilateral edematous kidneys. Patient with bilateral CVA tenderness. Patient nonseptic: WBCs WNL, vital stable. Urine culture from previous visit shows ESBL E. coli. Received 2 L normal saline, 1 g Tylenol, Rocephin in the ED. -Meropenum 1 g IV every 8 hours (started 09/08) -Blood and urine cultures pending, follow-up -Zofran, Tylenol, [place] as needed -Dilaudid as needed for severe pain -Encourage oral hydration -Strict I&O #Incidental finding of poorly defined prominence of the cervix Poorly defined prominence of the cervix found on CT A/P. Patient has previous history of breast cancer, treatment completed. -TVUS, follow-up #HTN, patient history #COPD, patient history Patient has stated history. Med rec's pending. Uses albuterol inhaler as needed. -Consider resuming home HTN meds -DuoNebs as needed DVT prophylaxis: Heparin GI prophylaxis: None Diet: Cardiac Lines: Peripheral IV, Chang cath Code status: Full code Plan of care discussed with senior resident Dr. Bai PGY?[address] Enriquez. Roberto Michel MD PGY?1 Attending Provider Attestation/Addendum I have discussed and was present for the essential components of the history, physical examination, diagnosis, and treatment plan with the resident. I agree with the patient's care as documented by the resident and amended herein by me. Eddi Enriquez DO.
[2024-09-08] MEDS: carVEDILOL 3.125 MG TABLET PO (18:13)
[2024-09-08] MEDS: Lisinopril 20 MG TABLET PO (18:13)
[2024-09-08 18:51] LABS: Procalcitonin 2.01 ng/ml (0.0-0.49)
[2024-09-08] MEDS: MEROPENEM IV (21:31)
[2024-09-08] MEDS: HEPARIN SOD INJ 5000 UNIT/ML VIAL SC (21:31)
[2024-09-08] MEDS: SODIUM CHLORIDE 0.9% IV (21:31)
[2024-09-09] VITALS (11 sets, daily range): BP systolic 129–154; BP diastolic 68–89; PULSE 78–93; RESP 16–20; TEMP 36.3–37.2; O2SAT 93–100
[2024-09-09 05:45] LABS: Basophils % (Auto) 0 % (0-2.5); Eosinophils # (Auto) 0.1 Thou/mm3 (0.0-0.5); Eosinophils % (Auto) 1 % (0-10); Hematocrit 33.1 % (36.0-46.0); Hemoglobin 11.1 g/dL (12.0-16.0); Immature Granulocytes % (Auto) 0 % (0-0); Immature Granulocytes Auto 0.04 Thou/mm3 (0.00-0.00); Lymphocytes # (Auto) 1.2 Thou/mm3 (1.0-4.8); Lymphocytes % (Auto) 14 % (10-50); Mean Corpuscular HGB Conc 33.5 g/dl (31.0-37.0); Mean Corpuscular Hemoglobin 27.5 pg (25.0-35.0); Mean Corpuscular Volume 82 fL (80-100); Monocytes # (Auto) 0.9 Thou/mm3 (0.0-0.8); Monocytes % (Auto) 10 % (0-12); Neutrophils # (Auto) 6.7 Thou/mm3 (1.8-7.7); Neutrophils % (Auto) 75 % (37-80); Nucleated Red Blood Cell % 0 /100 WBC (0); Platelet Count 218 Thou/mm3 (140-440); RDW Standard Deviation 43.1 fL (36.4-46.3); Red Blood Count 4.04 Miln/mm3 (4.00-5.20); White Blood Count 8.9 Thou/mm3 (3.6-11.0)
--- NOTE | 2024-09-09 06:00 | XR_ITS ---
Examination: Transvaginal ultrasound of the pelvis, complete Technique: Transvaginal sonographic images pelvis performed using smith scale imaging Exam date and time: September 09, 2024 at 0759 hours INDICATIONS: Prominent cervix on CT pelvis September 08, 2024 FINDINGS: Uterus 9.3 x 4.0 x 4.0 cm Small cyst in the cervix 6 x 5 mm, solid mass in the lower uterine segment, 6 x 4 x 5 mm Endometrial stripe 0.7 cm with minimal fluid in the endometrium Right ovary 1.2 x 0.6 x 1.0 cm arterial flow Left ovary 2.1 x 1.3 x 1.2 cm arterial flow IMPRESSION: Small mass in the lower uterine segment, 6 x 4 x 5 mm No solid cervical mass
[2024-09-09 06:39] LABS: Carbon Dioxide 24.2 mMol/L (20.0-31.0); Chloride 103 mMol/L (98-107); Potassium 4.1 mMol/L (3.4-5.1); Sodium 137 mMol/L (136-145)
[2024-09-09 06:40] LABS: Alanine Aminotransferase 24 U/L (10-49); Albumin/Globulin Ratio 1.5 (1.2-2.2); Alkaline Phosphatase 140 U/L (46-116); Anion Gap 10 (7-16); Aspartate Amino Transferase 16 U/L (0-34); BUN/Creatinine Ratio 17 Ratio (12-20); Bilirubin,Total 0.6 mg/dL (0.3-1.2); Blood Urea Nitrogen 19 mg/dL (9-23); Calcium 9.1 mg/dL (8.3-10.6); Calcium (Corrected) 9.1 mg/dL (8.5-10.1); Cardiac Risk Estimate 7.2 RATIO (3.7-5.6); Cholesterol 179 mg/dL (132-200); Creatinine (Component) 1.1 mg/dL (0.6-1.3); Estimated Creatinine Clearance 49.7 mL/min (>60); Globulin 2.6 gm/dL (2.3-3.5); Glucose 99 mg/dL (74-106); HDL Cholesterol 25 mg/dL (40-60); LDL Cholesterol,Calculated 117 mg/dL (0-130); Osmolality,Calculated 276 (275-295); Phosphorous 2.9 mg/dL (2.4-5.1); Thyroid Stimulating Hormone 0.83 uIU/mL (0.55-4.78); Total Protein 6.6 gm/dL (5.7-8.2); Triglycerides 186 mg/dL (30-150); eGFR 57 See Note
[2024-09-09] MEDS: Lisinopril 20 MG TABLET PO (08:27)
[2024-09-09] MEDS: SODIUM CHLORIDE 0.9% IV ×2 (08:27→20:28)
[2024-09-09] MEDS: MEROPENEM IV ×2 (08:27→20:28)
[2024-09-09] MEDS: HEPARIN SOD INJ 5000 UNIT/ML VIAL SC ×2 (08:28→20:35)
[2024-09-09] MEDS: carVEDILOL 3.125 MG TABLET PO ×2 (08:28→17:47)
--- NOTE | 2024-09-09 09:40 | PC.SS ---
Patient Jodi Bills is a 63 Year old Female admitted for Pyelonephritis. SS met with patient at bedside to complete initial assessment and discuss discharge plan. Patient appeared to be alert and oriented. Patient reports prior to admission she was able to ambulate. Patient reports she lives at home alone. She reports her son, Ochoa Hendrix is her surrogate decision maker [phone]. Patient reports her PCP is Karo Merino. Patient does not utilize any source of DME to assist with ambulation. At time of discharge patient will return home, patients son will provide transportation. Discharge Plan: Home Next of Kin: Son, Ochoa Hendrix [phone]
--- NOTE | 2024-09-09 13:33 | ESPR_ITS ---
<Statement entered by Gama Bai MD - 09/09/24 13:39> Patient was seen and examined at the bedside. Patient reported having subjective improvement and still have some nausea and reports to have abdominal pain. She had a fever spike overnight. Transvag ultrasound showed mass on lower uterine segment. CA125 was elevated at 42. Consulted SLOT KEY PERSON for follow- up and will continue with IV antibiotics. Will follow-up on urine cultures. Hemoglobin stable at 11.1 WBC currently pending. All labs and orders were reviewed. I saw and examined the patient, and I agree with current management stated by Dr Amadeo RAMIREZ,PGY1. Plan of care was discussed with the attending physician and resident physician. Disclaimer: Despite multiple revisions, due to the dictation software being used, the document bellow may not be free of grammatical errors including phonetic/typographic errors. However, this does not deter from our commitment to providing health care in the patient's best interest in mind. Dr. Richardson MD, PGY 2 Documentation for date of: 09/09/24 Subjective Subjective Interval history: No overnight events. Patient seen examined at bedside. Reports subjective improvement, still notes fatigue, dysuria, nausea, decreased appetite, vague abdominal pain. Patient had fever overnight. Denies shortness of breath, chest pain, vomiting. TVUS showed 6 x 4 x 5 mm mass of lower uterine segment. CA125 was elevated at 42. Consulted SLOT KEY PERSON, follow-up. Continue IV antibiotics. Exam Vital Signs Temp Pulse Resp BP Pulse Ox O2 Del Method 99.0 F 86 18 141/68 H 93 L Room Air 09/09/24 08:00 09/09/24 08:28 09/09/24 08:00 09/09/24 08:28 09/09/24 08:00 09/09/24 08:00 Narrative Exam PE: Gen: Well-developed and well-nourished. HEENT: NCAT, PERRLA, EOMI, MMM, anicteric conjunctivae. CVS: normal S1 and S2. RRR. No M/R/G. Resp: CTA B/L. No rhonchi, rales, crackles or wheezing. Abd: soft, non-distended. Mild diffuse tenderness, worse in left upper quadrant. MSK: Good ROM in BUE & BLE. No edema or rash. Bilateral CVA tenderness, improved from yesterday. Neuro: CN II-XII grossly intact. Strength 5/5 in BUE & BLE. Alert and oriented x3. Psych: appropriate mood and affect. Objective Labs 09/09/24 05:34 09/09/24 05:34 Labs: Laboratory Results - last 24 hr 09/08/24 09/09/24 08:44 05:34 WBC 8.9 RBC 4.04 Hgb 11.1 L D Hct 33.1 L MCV 82 MCH 27.5 MCHC 33.5 RDW Std Deviation 43.1 Plt Count 218 D Neut % (Auto) 75 Lymph % (Auto) 14 [place] % (Auto) 10 Eos % (Auto) 1 Baso % (Auto) 0 Neut # (Auto) 6.7 Lymph # (Auto) 1.2 [place] # (Auto) 0.9 H Eos # (Auto) 0.1 Baso # (Auto) 0.0 Immature Gran # (Auto) 0.04 H Absolute Nucleated RBC 0.00 Immature Gran % 0 Nucleated RBC % 0 Sodium 137 Potassium 4.1 D Chloride 103 Carbon Dioxide 24.2 Anion Gap 10 BUN 19 Creatinine 1.1 Estim Creat Clear Calc 49.7 L eGFR 57 L BUN/Creatinine Ratio 17 Glucose 99 Calculated Osmolality 276 Calcium 9.1 Corrected Calcium 9.1 Phosphorus 2.9 Magnesium 2.0 Total Bilirubin 0.6 AST 16 ALT 24 Alkaline Phosphatase 140 H D Total Protein 6.6 Albumin 4.0 D Globulin 2.6 Albumin/Globulin Ratio 1.5 Triglycerides 186 H Cholesterol 179 LDL Cholesterol, Calc 117 HDL Cholesterol 25 L Cholesterol/HDL Ratio 7.2 H CA 125 Antigen 42.0 H Procalcitonin 2.01 H TSH 0.83 Quality Measures Quality Measures sepsis Current suspected stage: ruled out Possible source: genitourinary Blood cultures ordered: completed in ED Antibiotic ordered: Yes Assessment & Plan Assessment Current Active Medications: Generic Name Dose Route Start Last Admin Trade Name Freq PRN Reason Stop Dose Admin Acetaminophen 650 mg 09/08/24 14:09 Acetaminophen 325 Mg Tablet PO 10/08/24 14:08 Q6H PRN Fever >100.4 or pain 1-3 Hydrocodone Bitart/Acetaminophen 1 tab 09/08/24 15:37 09/08/24 21:48 Hydrocodone/Apap 5/325 Tablet PO 09/13/24 14:08 1 tab Q4HR PRN Administration PAIN SCALE 4-6 (Moderate Albuterol/Ipratropium 3 ml 09/08/24 14:09 09/08/24 14:33 Albuterol/Ipratropium (Duoneb) Rt Martha 3 Ml Nebu INH 10/08/24 14:08 3 ml Q2HR PRN Administration SHORTNESS OF BREATH OR WHEEZE Carvedilol 3.125 mg 09/08/24 17:30 09/09/24 08:28 Carvedilol 3.125 Mg Tablet PO 10/08/24 17:29 3.125 mg BIDWM AMAN Administration Heparin Sodium (Porcine) 5,000 unit 09/08/24 21:00 09/09/24 08:28 Heparin Sod Inj 5000 Unit/Ml Vial SC 09/22/24 20:59 5,000 unit Q12HR AMAN Administration Hydromorphone HCl 0.5 mg 09/08/24 15:35 Hydromorphone Inj 2 Mg/Ml Vial IVP 09/13/24 15:34 Q4HR PRN Severe Pain 7-10 Meropenem 1,000 mg/ Sodium 50 mls @ 100 mls/hr 09/08/24 21:00 09/09/24 08:27 Chloride IV 09/15/24 20:59 100 mls/hr Q12HR AMAN Administration Lisinopril 40 mg 09/10/24 09:00 Lisinopril 20 Mg Tablet PO 10/10/24 08:59 QDAY AMAN Ondansetron HCl 4 mg 09/08/24 14:09 Ondansetron Inj 2 Mg/Ml Inj 2 Ml IV 10/08/24 14:08 Q6H PRN NAUSEA OR VOMITING Protocol Polyethylene Glycol 17 gm 09/08/24 15:37 Polyethylene Glycol 17 Gm Packet PO 10/09/24 08:59 QDAY PRN constipation Protocol Sennosides 1 tab 09/08/24 15:37 Senna Tablet PO 10/08/24 15:36 QDAY PRN CONSTIPATION Protocol Plan 63 y/o F with PMHx significant for hypertension, COPD, prolapsed uterus, breast cancer 1 year ago s/p treatment presenting to the ED from home with chief complaint of worsening UTI and bilateral flank pain, admitted for pyelonephritis. #Pyelonephritis #Sepsis ruled out Patient presented to the ED on 09/05 with burning urination, was given Macrobid and sent home. Patient returned 09/08 due to worsening of symptoms, burning urination, and development of fevers, nausea/vomiting, flank pain. CT A/P shows bilateral edematous kidneys. Patient with bilateral CVA tenderness. Patient nonseptic: WBCs WNL, vital stable. Urine culture from previous visit shows ESBL E. coli. Received 2 L normal saline, 1 g Tylenol, Rocephin in the ED. -Meropenum 1 g IV every 8 hours (started 09/08) -Blood and urine cultures pending, follow-up -Zofran, Tylenol, Sylvester as needed -Dilaudid as needed for severe pain -Encourage oral hydration -Strict I&O #Incidental finding of uterine mass Poorly defined prominence of the cervix found on CT A/P. Patient has previous history of breast cancer, treatment completed. Transvaginal ultrasound showed only cervical cyst, but also a 6 x 4 x 5 mm mass of the lower uterine segment. CA125 was elevated at 42. -SLOT KEY PERSON consulted, follow-up #HTN, patient history #COPD, patient history Patient has stated history. Home lisinopril and Coreg. Uses albuterol inhaler as needed at home. -Resume patient's home lisinopril 40 mg daily and Coreg 3.25 mg twice daily -DuoNebs as needed DVT prophylaxis: Heparin GI prophylaxis: None Diet: Cardiac Lines: Peripheral IV, Chang cath Code status: Full code Plan of care discussed with senior resident Dr. Bai PGY?[address] Enriquez. Roberto Michel MD PGY?1 Attending Provider Attestation/Addendum I have discussed and was present for the essential components of the history, physical examination, diagnosis, and treatment plan with the resident. I agree with the patient's care as documented by the resident and amended herein by me. Eddi Enriquez, DO. Patient seen and evaluated this AM. Vital signs stable, patient afebrile overnight, hemoglobin down trended to 11, WBC 8.9., BMP unremarkable. Blood culture results from 09/05 demonstrating ESBL E. coli. Incidental finding on CTAP demonstrating a prominence of the cervix, TVUS also ordered demonstrating a small mass in the lower uterine segment measuring 6 x 4 x 5 mm however no solid mass noted, CA125 elevated.. For today, will continue meropenem for ESBL E. coli concerning the patient does have a penicillin allergy, gynecology also consulted for the incidental uterine mass that we found, appreciate recommendations. Will continue follow-up with cultures and monitor closely, likely discharge in 1 to 2 days pending improvement, patient will likely need outpatient follow-up for workup of uterine mass unless specialist recommends being done inpatient. Although this document has been carefully reviewed, there may still be some phonetic and other typographical errors. These errors are purely grammatical due to imperfections in the software program and should not be construed in any way to compromise the substance of the patient's medical care during this visit.
[2024-09-09] MEDS: HYDROcodone/APAP 5/325 TABLET 1 TAB PO (19:31)
--- NOTE | 2024-09-09 20:33 | PD.GYNCONS ---
RPG PROGRAMMER HPI Data of Consult Requesting Physician: Panda Enriquez DO Primary Care Provider: Karo Merino PA-C Consult Narrative History of present illness: 63 y/o p4, was seen at the bedside , as requested by the primary team. Ibrahima is admitted for pyelonephritis. On imaging incidental finding of a small uterine mass was seen. Ibrahima has no vaginal bleeding , no concerns of vaginal discharge. Significant history of left breast cancer, s/o mastectomy , chemoradiation. No pain , has a pap smear done by her PCP ( no records, outside [place]) 1 week ago , results are pending cc:: cc: Panda Enriquez DO Meds Home Medications and Allergies Home Medications ?Medication ?Instructions ?Recorded ?Confirmed ?Type lisinopril 20 mg tablet 40 mg PO DAILY 08/14/23 09/08/24 History carvedilol 3.125 mg tablet 3.125 mg PO BID 09/08/24 09/08/24 History nitrofurantoin 100 mg PO BID 09/08/24 09/08/24 History monohydrate/macrocrystals 100 mg capsule Allergies Allergy/AdvReac Type Severity Reaction Status Date / Time bee venom protein (honey bee) Allergy Severe Swelling Verified 09/08/24 07:32 of Lip/Tongue/Throat Penicillins Allergy Severe Swelling Verified 09/08/24 07:32 of Lip/Tongue/Throat Exam - RPG PROGRAMMER Vital Signs Temp Pulse Resp BP Pulse Ox O2 Del Method 97.4 F 80 20 152/82 H 100 Room Air 09/09/24 16:00 09/09/24 18:12 09/09/24 18:12 09/09/24 17:47 09/09/24 18:12 09/09/24 16:00 Constitutional Constitutional: no acute distress Routine HEENT Exam Head: Present normocephalic and atraumatic Eye: Present EOMI and PERRL ENT: Present mucous membranes moist Routine Neck Exam Neck: Present supple and trachea midline Routine Respiratory Exam Respiratory: Present chest non-tender, lungs clear, normal breath sounds and no resp distress Routine Cardiovascular Exam Cardiovascular: Present RRR Routine Abdominal Exam Abdominal: Present soft and normoactive bowel sounds Routine Rectal Exam Comments: soft Routine Exam Comments: speculum exam: Cervix is normal healthy appearance bimanual exam no adnexal mass or tenderness no bleeding after the exam Routine Extremities Exam Extremities: Present full ROM Routine Skin Exam Skin: Present intact and dry Routine Neurological Exam Neurological: Present alert, oriented X3 and CN II-XII intact Routine Psychiatric Exam Psychiatric: Present normal affect and normal thought process RPG PROGRAMMER - Results Labs 09/09/24 05:34 09/09/24 05:34 Labs: Short CBC 09/09/24 Range/Units 05:34 WBC 8.9 (3.6-11.0) Thou/mm3 Hgb 11.1 L D (12.0-16.0) g/dL Hct 33.1 L (36.0-46.0) % Plt Count 218 D (140-440) Thou/mm3 BMP 09/09/24 05:34 Sodium 137 Potassium 4.1 D Chloride 103 Carbon Dioxide 24.2 BUN 19 Creatinine 1.1 Glucose 99 Calcium 9.1 Liver Function 09/09/24 Range/Units 05:34 Total Bilirubin 0.6 (0.3-1.2) mg/dL AST 16 (0-34) U/L ALT 24 (10-49) U/L Alkaline Phosphatase 140 H D (46-116) U/L Albumin 4.0 D (3.4-4.8) gm/dL Impressions Impression: 63y/o p4, admitted for pyelonephritis Primary team consulted OBGYN for incidental mass in Lower uterine segment. No Family Service Counselor symptoms Breast cancer history , s/p chemoradiation TVUS: Uterus 9.3 x 4.0 x 4.0 cm Small cyst in the cervix 6 x 5 mm, solid mass in the lower uterine segment, 6 x 4 x 5 mm Endometrial stripe 0.7 cm with minimal fluid in the endometrium Right ovary 1.2 x 0.6 x 1.0 cm arterial flow Left ovary 2.1 x 1.3 x 1.2 cm arterial flow Isolated Ca125 marginally raised( 42) , without other corroborative findings Assessment and Plan Additional Assessment & Plan Additional Plan: Given asymptomatic patinet and 6mm mass in Uterus( looks like a cyst on image review) ,and a normal examination, chances of any pathologic finding is low. However , only way to rule out any cancer pathology is a biopsy EMB in case of no h/o postmenopausal bleeding and US 7mm endometrial lining thickness, is not indicated. In case of bleeding or new symptioms, Family Service Counselor consultation can be placed again
[2024-09-10] VITALS: BP 147/81; PULSE 73; RESP 20; TEMP 36.4; O2SAT 95
[2024-09-10] MEDS: HYDROmorphone INJ 2 MG/ML VIAL 0.5 MG IVP (03:12)
[2024-09-10 04:00] VITALS: BP 165/88; PULSE 78; RESP 16; TEMP 36.3; O2SAT 96
[2024-09-10 05:27] LABS: Basophils % (Auto) 0 % (0-2.5); Eosinophils # (Auto) 0.1 Thou/mm3 (0.0-0.5); Eosinophils % (Auto) 1 % (0-10); Hematocrit 34.2 % (36.0-46.0); Hemoglobin 11.5 g/dL (12.0-16.0); Immature Granulocytes % (Auto) 0 % (0-0); Immature Granulocytes Auto 0.02 Thou/mm3 (0.00-0.00); Lymphocytes # (Auto) 1.4 Thou/mm3 (1.0-4.8); Lymphocytes % (Auto) 19 % (10-50); Mean Corpuscular HGB Conc 33.6 g/dl (31.0-37.0); Mean Corpuscular Hemoglobin 27.2 pg (25.0-35.0); Mean Corpuscular Volume 81 fL (80-100); Monocytes # (Auto) 0.7 Thou/mm3 (0.0-0.8); Monocytes % (Auto) 9 % (0-12); Neutrophils # (Auto) 5.2 Thou/mm3 (1.8-7.7); Neutrophils % (Auto) 70 % (37-80); Nucleated Red Blood Cell % 0 /100 WBC (0); Platelet Count 249 Thou/mm3 (140-440); RDW Standard Deviation 43.8 fL (36.4-46.3); Red Blood Count 4.23 Miln/mm3 (4.00-5.20); White Blood Count 7.5 Thou/mm3 (3.6-11.0)
[2024-09-10 06:16] LABS: Alanine Aminotransferase 22 U/L (10-49); Albumin, Serum 3.9 gm/dL (3.4-4.8); Albumin/Globulin Ratio 1.4 (1.2-2.2); Alkaline Phosphatase 130 U/L (46-116); Anion Gap 10 (7-16); Aspartate Amino Transferase 19 U/L (0-34); BUN/Creatinine Ratio 22 Ratio (12-20); Bilirubin,Total 0.5 mg/dL (0.3-1.2); Blood Urea Nitrogen 20 mg/dL (9-23); Calcium 9.3 mg/dL (8.3-10.6); Calcium (Corrected) 9.4 mg/dL (8.5-10.1); Carbon Dioxide 25.6 mMol/L (20.0-31.0); Chloride 104 mMol/L (98-107); Creatinine (Component) 0.9 mg/dL (0.6-1.3); Estimated Creatinine Clearance 60.8 mL/min (>60); Globulin 2.7 gm/dL (2.3-3.5); Glucose 97 mg/dL (74-106); Magnesium 1.9 mg/dL (1.6-2.6); Osmolality,Calculated 282 (275-295); Phosphorous 3.2 mg/dL (2.4-5.1); Potassium 4.1 mMol/L (3.4-5.1); Sodium 140 mMol/L (136-145); Total Protein 6.6 gm/dL (5.7-8.2); eGFR > 60 See Note
[2024-09-10 06:57] VITALS: PULSE 83; RESP 19; O2SAT 99
[2024-09-10 07:42] VITALS: BP 140/89; PULSE 87; RESP 16; TEMP 36.1; O2SAT 96
[2024-09-10] MEDS: MEROPENEM IV (08:26)
[2024-09-10] MEDS: SODIUM CHLORIDE 0.9% IV (08:26)
[2024-09-10 08:29] VITALS: BP 140/89; PULSE 87
[2024-09-10] MEDS: carVEDILOL 3.125 MG TABLET PO (08:29)
[2024-09-10] MEDS: Lisinopril 20 MG TABLET 40 MG PO (08:29)
[2024-09-10] MEDS: HEPARIN SOD INJ 5000 UNIT/ML VIAL SC (08:30)
[2024-09-10 11:50] VITALS: BP 113/73; PULSE 80; RESP 18; TEMP 36.2; O2SAT 96
--- NOTE | 2024-09-10 13:56 | ESDS_ITS ---
<Statement entered by Gama Bai MD - 09/10/24 14:12> I saw and examined the patient, and I agree with current management stated by Dr Marilu MD,PGY1. Plan of care was discussed with the attending physician and resident physician. Disclaimer: Despite multiple revisions, due to the dictation software being used, the document bellow may not be free of grammatical errors including phonetic/typographic errors. However, this does not deter from our commitment to providing health care in the patient's best interest in mind. Dr. Richardson MD, PGY 2 Planned Discharge Date 09/10/24 DS: Providers Provider Date of admission: 09/08/24 14:07 Primary care physician: Karo Merino PA-C Admitting Provider: Panda Enriquez DO Attending Provider on Admission: Panda Enriquez DO Consults: 09/09/24 13:14 Consult to Gynecology Routine Comment: Consulting Provider: Ck Steele Attending Provider on DC: Panda Enriquez DO Discharging Provider: Roberto Michel MD DS: Diagnosis Problem List Completed Was Problem List Reviewed/Reconciled?: Yes Hospital Course Hospital Course Hospital course: 63-year-old female with past medical history of invasive ductal cancer currently cancer free from last 6-month, prolapsed uterus, COPD presented with bilateral flank pain, nausea, vomiting, fevers. Patient was recently discharged after getting Macrobid for UTI [address] abdomen showed bilateral pyelonephritis. Previous urine culture grew ESBL UTI and patient is allergic to penicillin therefore meropenem was started and blood cultures/urine cultures were ordered, both were negative. Patient received 2 L bolus of fluids in the ED. Patient also has a history of COPD therefore DuoNebs were given. We ordered transvaginal ultrasound due to incidental finding of poorly defined prominence on cervix, which showed cervical cysts and a small uterine mass. WOOL WASHER FEEDER was consulted but had low concern due to small size of mass, no warning signs, no abnormal uterine bleeding. Patient recommended follow-up with PCP as needed. Patient showed subjective improvement in symptoms during course of hospital stay. Patient medically cleared and stable for discharge. Discharge plan: We are discharging you with ciprofloxacin 5 mg twice daily x 7 days. We changed her lisinopril from 20 mg 2 tabs to 40 mg 1 tab once daily We have discontinued your Macrobid Please continue taking all other prescribed medications as previously prescribed Please follow-up with PCP in 1-2 weeks Follow-up with PCP for further workup of uterine mass if desired, or if you develop abnormal vaginal bleeding. Please return to the ED if symptoms persist or worsen. Diagnoses: #Pyelonephritis #Sepsis ruled out #Incidental finding of uterine mass #HTN, patient history #COPD, patient history Plan of care discussed with senior resident Dr. Bai PGY?[address] Enriquez. Roberto Michel MD PGY?1 Time Spent with Patient Time attestation: Total time spent providing and/or coordinating discharge services: Exam Vital Signs Temp Pulse Resp BP Pulse Ox O2 Del Method 97.2 F 80 18 113/73 96 Room Air 09/10/24 11:50 09/10/24 11:50 09/10/24 11:50 09/10/24 11:50 09/10/24 11:50 09/10/24 11:50 Narrative Exam PE: Gen: Well-developed and well-nourished. HEENT: NCAT, PERRLA, EOMI, MMM, anicteric conjunctivae. CVS: normal S1 and S2. RRR. No M/R/G. Resp: CTA B/L. No rhonchi, rales, crackles or wheezing. Abd: soft, non-distended. Nontender. MSK: Good ROM in BUE & BLE. No edema or rash. Bilateral CVA tenderness, improved from yesterday. Neuro: CN II-XII grossly intact. Strength 5/5 in BUE & BLE. Alert and oriented x3. Psych: appropriate mood and affect. Discharge Plan Plan Patient Disposition: HOME (Self Care) Disposition Comment: Stable Patient condition on transfer: Stable Prescriptions/Referrals Prescriptions/Med Rec: New lisinopril 40 mg tablet 40 mg PO QDAY Qty: 30 0RF ciprofloxacin HCl 500 mg tablet 500 mg PO BID 7 Days Qty: 14 0RF Continued hydrocodone-acetaminophen 10-325 mg tablet 1 tab PO Q6H MDD 4 PRN (Reason: pain) Qty: 40 0RF carvedilol 3.125 mg tablet 3.125 mg PO BID Patient Comments: TAKE 1 TABLET BY MOUTH TWICE DAILY Discontinued lisinopril 20 mg tablet 40 mg PO DAILY Patient Comments: TAKE 1 TABLET BY MOUTH ONCE DAILY nitrofurantoin monohyd/m-cryst 100 mg Capsule 100 mg PO BID Rx Instructions: must administer with a meal/food Referrals: Karo Merino PA-C [Primary Care Provider] - Patient/Caregiver Discharge Instructions Discharge Activity: activity as tolerated Other Discharge Activity Instructions:: We are discharging you with ciprofloxacin 5 mg twice daily x 7 days. We changed her lisinopril from 20 mg 2 tabs to 40 mg 1 tab once daily We have discontinued your Macrobid Please continue taking all other prescribed medications as previously prescribed Please follow-up with PCP in 1-2 weeks Follow-up with PCP for further workup of uterine mass if desired, or if you develop abnormal vaginal bleeding. Please return to the ED if symptoms persist or worsen. Education Materials: Urinary Tract Infections in Women, Kidney Infec Dc, Understanding Sepsis Print Language: Citizen Of [place] Stand Alone Forms: Leticia Award Info., Patient Portal Info Letter Discharge Order Discharge Orders: Discharge (Routine); Ordered 09/10/24 Ordered By: Gama Bai Quality Discharge Quality Measures VTE prophylaxis Attestestation Attestation I have discussed and was present for the essential components of the discharge history, physical examination, diagnosis, and discharge treatment plan with the resident. I agree with the patient's discharge care as documented by the resident and amended herein by me. Eddi Enriquez DO. The patient understood all discharge instructions, all questions were answered satisfactorily. The patient was instructed to return to the Emergency Department is symptoms worsened or persisted. Patient will be discharged with a continued course of ciprofloxacin pyelonephritis secondary to ESBL E. coli UTI. The patient also had an incidental finding of a uterine mass which has been asymptomatic with no bleeding noted gynecology consulted and low concern for malignancy at this time however her primary care physician should be aware for any changes that may occur. The patient was stable, afebrile, tolerating p.o. intake and ambulatory at time of discharge home. Although this document has been carefully reviewed, there may still be some phonetic and other typographical errors. These errors are purely grammatical due to imperfections in the software program and should not be construed in any way to compromise the substance of the patient's medical care during this visit.
== END 2024-09-10 12:37 | disposition home or self-care (01) | DRG 690 ==
LOC: SERX 13:47 → SERHOLD 14:20 → S3NX 16:04
PROVIDERS: Student in an Organized Health Care Education/Training Program; Admitting Provider Student in an Organized Health Care Education/Training Program; Emergency Provider Emergency Medicine; PCP Physician Assistant; Visit Provider Student in an Organized Health Care Education/Training Program
DX: N12 Tubulo-interstitial nephritis, not specified as acute or chronic (principal); Z16.12 Extended spectrum beta lactamase (ESBL) resistance; B96.20 Unspecified Escherichia coli [E. coli] as the cause of diseases classified elsewhere; N85.8 Other specified noninflammatory disorders of uterus; J44.9 Chronic obstructive pulmonary disease, unspecified; R97.1 Elevated cancer antigen 125 [CA 125]; I10 Essential (primary) hypertension; Z85.3 Personal history of malignant neoplasm of breast; Z79.899 Other long term (current) drug therapy; Z92.21 Personal history of antineoplastic chemotherapy; Z88.0 Allergy status to penicillin
CPT/HCPCS: 36415; 74177; 76830; 80053; 80061; 81001; 83605; 83690; 83735; 84100; 84145; 84443; 85025; 86304; 87040; 87086; 87400; 87502; 87811; 94640; 96361; 96365; 99291; A4649; A9270; J0696; J1643; J1650; J2185; J3490; J7030; Q9967

== ENCOUNTER 2024-09-11 01:08 | Emergency (ER) | payer MEDICARE, MEDICAID, SELFPAY ==
[2024-09-11 01:09] VITALS: BMI 33.2
[2024-09-11 01:17] VITALS: BP 138/94; PULSE 86; RESP 18; TEMP 36.8; O2SAT 98
--- NOTE | 2024-09-11 01:32 | PD.EDRME ---
Rapid Medical Screening Exam E Arrival date/time: 09/11/24 01:08 63-year-old female with a history of hypertension, invasive ductal cancer presents to the emergency room with a chief complaint of abdominal pain and distention x 1 day. Patient states she was admitted for pyelonephritis and was discharged on antibiotics yesterday. Patient states that since 2:30 PM she has not been able to void and is having increased abdominal pain and tenderness. I have greeted and performed a focused initial assessment of this patient. A comprehensive ED assessment and evaluation of the patient, analysis of all test results, and completion of the medical decision making process will be conducted by additional ED providers. Chief Complaint: Abdominal Pain Vital signs: Vital Signs Temperature 98.3 F 09/11/24 01:17 Pulse Rate 86 09/11/24 01:17 Respiratory Rate 18 09/11/24 01:17 Blood Pressure 138/94 H 09/11/24 01:17 Pulse Oximetry (%) 98 09/11/24 01:17 Oxygen Delivery Method Room Air 09/11/24 01:17 Vital signs reviewed by provider: Yes
[2024-09-11] MEDS: HYDROcodone/APAP 5/325 TABLET 1 TAB PO (01:47)
--- NOTE | 2024-09-11 02:10 | EDNOTE_ITS ---
ED General RME/HPI General Chief complaint: Abdominal Pain Stated complaint: ABD PAIN Time Seen by Provider: 09/11/24 02:10 Arrival date/time: 09/11/24 01:08 RME / HPI RME / HPI narrative: Chief complaint: 09/11/24 01:08 lower abdominal pain and distention x 1 day. HPI: Patient is a 63-year-old female with a history of primary hypertension, invasive ductal cancer s/p chemoradiaiton, presents to the emergency room with a chief complaint of abdominal pain and distention x 1 day. Patient states she was admitted for pyelonephritis and was discharged on antibiotics yesterday. Patient states that since 2:30 PM she has not been able to void and is having increased abdominal pain and tenderness. Patient has severe mid back pain radiating down the flanks into the suprapubic region, R>L. She described her pain 10/10 in severity, sharp and constant. She has been having the symptoms for the last 1 week. She was recently hospitalized at [facility], and discharged on 09/10 1724 with oral antibiotics for bilateral pyonephritis. She was told that if she is able to void after the Quarles was removed yesterday, she is okay to be discharged, however upon returning home she was unable to void. She describes having a sensation of pressure when she sits down to void, she can feel her uterus coming down into her vagina and creating tightness , because of that she was unable to pass urine despite straining. She has tried to push the uterus with her fingers in order to avoid, however has been accessible at this time. In the ED, vitals were within normal limits. Patient complained of severe suprapubic and flank pain, R>L. She was given [place] x 1, after which her pain improved to 8/10 Allergies: Bee venom, penicillin - angioedema Social history: Marital?Status:? Tobacco?Use:?Denies ETOH?Use:?Denies Drug?Note:?Denies Social?History?Note:?Lives?at home Family history: Denies any family history of sudden cardiac , stroke or cancers. L Related Data Home Medications ?Medication ?Instructions ?Recorded ?Confirmed carvedilol 3.125 mg tablet 3.125 mg PO BID 09/08/24 09/08/24 Previous Rx's ?Medication ?Instructions ?Recorded hydrocodone 10 mg-acetaminophen 1 tab PO Q6H PRN pain #40 tabs 10/17/23 325 mg tablet ciprofloxacin HCl 500 mg tablet 500 mg PO BID 7 days #14 tabs 09/10/24 lisinopril 40 mg tablet 40 mg PO QDAY #30 tabs 09/10/24 Allergies Allergy/AdvReac Type Severity Reaction Status Date / Time bee venom protein (honey bee) Allergy Severe Swelling Verified 09/08/24 07:32 of Lip/Tongue/Throat Penicillins Allergy Severe Swelling Verified 09/08/24 07:32 of Lip/Tongue/Throat Review of Systems Review of Systems Narrative Review of Systems: GENERAL: Denies fevers/chills or diaphoresis. HEENT: Denies headache or visual/hearing changes. Denies nasal discharge. NEURO: Denies unusual weakness or difficulty speaking. CARDIO: Denies chest pain or palpitations. PULM: Denies SOB, coughing, or wheezing. GI: suprapubic abdominal pain, denies N/V/C/D. 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 MSK/EXT/SKIN: flank pain, starting in med back and radiating down to the lower abdomen, R>L PSYCH: Cooperative, pleasant mood & affect. The rest of the review of systems is otherwise negative. ED Exam Narrative Physical exam: Constitutional Alert, oriented x4 and in significant discomfort HEENT Vision grossly intact. Patent nares. Trachea midline. Respiratory Chest normal on inspection and clear to auscultation bilaterally. Cardiovascular S1 and S2 audible, RRR. No murmurs or carotid bruit. No gross JVD. Abdominal Soft, tender to palpation in suprapubic region. BS + Genitourinary Sharp renal tenderness on mid back tap, B/L flank pain R>L Musculoskeletal Extremities tone within normal limits. No LE edema. Neurological CN II - XII grossly intact. Extremity motor and sensation grossly intact. Skin Warm, dry and intact. No apparent lesions. Psychiatric Patient has a good affect, is cooperative. Other Other exam information: Recent CT abdomen/Pelvis on 09/08/2024: IMPRESSION: Bilateral edematous kidneys, consider bilateral pyelonephritis No ureteral calculi Normal appendix No bowel obstruction Colonic diverticulosis, no diverticulitis Course Course Course Narrative: S/p Quarles catheter with good output Likely urinary retention due to uterine prolapse , flank pain due to bilateral pyelonephritis Quality Measures none Orders Category Date Time Status Catheter [Urinary Catheter] QS Care 09/11/24 01:40 Completed Insert IV NOW Care 09/11/24 02:50 Completed CBC Stat Lab 09/11/24 01:54 Completed CMP [Comprehensive Metabolic Panel] Stat Lab 09/11/24 01:54 Completed Lipase Stat Lab 09/11/24 01:54 Completed UA [Urinalysis] Stat Lab 09/11/24 02:19 Completed Urine Culture Stat Lab 09/11/24 02:19 Received CIPROFLOXACIN/D5w 400 MG IVPB [Cipro Ivpb] Med 09/11/24 02:45 Discontinued 400 mg in 200 ml IV X1 HYDROcodone*/APAP 5/325 [[place] 5/325] Med 09/11/24 01:41 Discontinued 1 tab PO X1 ONE Vital Signs Vital signs: Vital Signs Temperature 98.3 F 09/11/24 01:17 Pulse Rate 86 09/11/24 01:17 Respiratory Rate 18 09/11/24 01:17 Blood Pressure 138/94 H 09/11/24 01:17 Pulse Oximetry (%) 98 09/11/24 01:17 Oxygen Delivery Method Room Air 09/11/24 01:17 [facility] Patient data External records reviewed:: [facility] previous records Clinical information provided by:: patient Social determinants that could affect healthcare access:: none Patient has the following chronic illnesses:: primary hypertension, invasive ductal cancer s/p chemoradiaiton How is presenting disease/condition affected by chronic disease/condition?: c aused by Evaluation data The following diagnostics were reviewed and interpreted by me:: lab results, radiology exam(s) and EKG tracing(s) Lab and/or radiology exams considered but not ordered:: CT Interpretation Summary: Likely urinary retention due to uterine prolapse Flank pain due to bilateral pyelonephritis Medications Medications considered but not ordered:: Morphine Medication administrations:: Medication Administration History Discontinued Medications Hydrocodone Bitart/Acetaminophen (Hydrocodone/Apap 5/325 Tablet) 1 tab PO X1 ONE Stop: 09/11/24 01:42 Last Admin: 09/11/24 01:47 Dose: 1 tab Documented By: DESTINY Ciprofloxacin/Dextrose (Cipro Ivpb) 400 mg in 200 mls @ 200 mls/hr IV X1 ONE Stop: 09/11/24 03:44 Last Infusion: 09/11/24 04:04 Dose: Infused Documented By: Admin: 09/11/24 03:16 Dose: 200 mls/hr Documented By: EE for pain Consultations Consultation(s) initiated? (list below): No Diagnosis Differential Diagnosis ED Complaint MDM: Cervical CA Most likely diagnosis given after review of the tests above:: 1 - Acute urinary retention due to uterine prolapse 2 - Severe renal and flank pain due to bilateral pyelonephritis Admission Indicated Admission indicated?: not indicated Explain why admission is indicated or not indicated:: Acute urinary retention due to uterine prolapse - resolved with quarles catheter. Follow up outpatient for pessary placement. Severe renal and flank pain due to bilateral pyelonephritis - patient is already on ciprofloxacin Admission Request Was there a request for admission?: No Disposition Plan Disposition Plan: other (specify) Medical Decision Making MDM Narrative MDM Narrative: Patient is a 63 yo female who presented on 09/11 with inability to void due to uterine prolapse. She was recently discharged on 09/10 after evaluation for abdominal pain secondary to a cervical cyst and bilateral pyelonephritis. 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 - patient can follow up outpatient for a pessary placement Continue antibiotics for bilateral pyelonephritis as prescribed Differential Diagnosis Differential Diagnosis: Cervical CA Lab Data 09/11/24 01:54 09/11/24 01:54 Labs: Lab Results 09/11/24 09/11/24 Range/Units 01:54 02:19 WBC 8.1 (3.6-11.0) Thou/mm3 RBC 4.40 (4.00-5.20) Miln/mm3 Hgb 11.8 L (12.0-16.0) g/dL Hct 36.5 (36.0-46.0) % MCV 83 (80-100) fL MCH 26.8 (25.0-35.0) pg MCHC 32.3 (31.0-37.0) g/dl RDW Std Deviation 45.3 (36.4-46.3) fL Plt Count 289 D (140-440) Thou/mm3 Neut % (Auto) 67 (37-80) % Lymph % (Auto) 21 (10-50) % Meagher % (Auto) 10 (0-12) % Eos % (Auto) 2 (0-10) % Baso % (Auto) 0 (0-2.5) % Neut # (Auto) 5.4 (1.8-7.7) Thou/mm3 Lymph # (Auto) 1.7 (1.0-4.8) Thou/mm3 Meagher # (Auto) 0.8 (0.0-0.8) Thou/mm3 Eos # (Auto) 0.2 (0.0-0.5) Thou/mm3 Baso # (Auto) 0.0 (0.0-0.2) Thou/mm3 Immature Gran # (Auto) 0.05 H (0.00-0.00) Thou/mm3 Absolute Nucleated RBC 0.00 (0.00-0.00) Thou/mm3 Immature Gran % 1 H (0-0) % Nucleated RBC % 0 (0) /100 WBC Sodium 139 (136-145) mMol/L Potassium 3.9 (3.4-5.1) mMol/L Chloride 104 (98-107) mMol/L Carbon Dioxide 23.7 (20.0-31.0) mMol/L Anion Gap 11 (7-16) BUN 29 H (9-23) mg/dL Creatinine 1.0 (0.6-1.3) mg/dL Estim Creat Clear Calc 54.2 L (>60) mL/min eGFR > 60 (60 - ) See Note BUN/Creatinine Ratio 29 H (12-20) Ratio Glucose 108 H (74-106) mg/dL Calculated Osmolality 284 (275-295) Calcium 9.1 (8.3-10.6) mg/dL Corrected Calcium 9.1 (8.5-10.1) mg/dL Total Bilirubin 0.3 (0.3-1.2) mg/dL AST 42 H (0-34) U/L ALT 43 (10-49) U/L Alkaline Phosphatase 140 H (46-116) U/L Total Protein 6.9 (5.7-8.2) gm/dL Albumin 4.1 (3.4-4.8) gm/dL Globulin 2.8 (2.3-3.5) gm/dL Albumin/Globulin Ratio 1.5 (1.2-2.2) Lipase 42 D (12-53) U/L Ur Collection Type Clean Catch Urine Color Lt-Yellow (Lt Yel-Yel) Urine Clarity Clear (Clear/Hazy) Urine pH 5.5 (5.0-7.0) Ur Specific [place] 1.022 (1.001-1.035) Urine Protein Trace (Neg - Trace) Urine Glucose (UA) Negative (Negative) Urine Ketones Negative (Negative) Urine Blood Negative (Negative) Urine Nitrite Negative (Negative) Urine Bilirubin Negative (Negative) Urine Urobilinogen (Auto) Negative (0.0-1.0) mg/dL Ur Leukocyte Esterase Positive (Negative) Urine RBC 2 (0-3) /hpf Urine WBC 8 H (0-5) /hpf Ur Squamous Epith Cells 0 (0-5) /hpf Urine Bacteria None (None) Discharge Plan Plan Patient Disposition: HOME (Self Care) Patient condition on transfer: Stable Prescriptions/Referrals Prescriptions/Med Rec: No Action hydrocodone-acetaminophen 10-325 mg tablet 1 tab PO Q6H MDD 4 PRN (Reason: pain) Qty: 40 0RF carvedilol 3.125 mg tablet 3.125 mg PO BID Patient Comments: TAKE 1 TABLET BY MOUTH TWICE DAILY lisinopril 40 mg tablet 40 mg PO QDAY Qty: 30 0RF ciprofloxacin HCl 500 mg tablet 500 mg PO BID 7 Days Qty: 14 0RF Referrals: Karo Merino PA-C [Primary Care Provider] - In 1 week Problem List Clinical Impression: Pyelonephritis, Complete uterine prolapse with prolapse of anterior vaginal wall Patient/Caregiver Discharge Instructions Discharge Activity: resume usual activities Print Language: Malagasy Stand Alone Forms: Leticia Award Info., Patient Portal Info Letter Attestation Attestation I, Dr. Funes was present for the pertinent history and physical findings, discussed the findings with the resident and help manage this patient. Note was reviewed and agree.
[2024-09-11 02:23] LABS: Collection Type, Urine Clean Catch; Squamous Epithelial Cell,Urine 0 /hpf (0-5)
[2024-09-11 02:33] LABS: Alanine Aminotransferase 43 U/L (10-49); Albumin, Serum 4.1 gm/dL (3.4-4.8); Albumin/Globulin Ratio 1.5 (1.2-2.2); Alkaline Phosphatase 140 U/L (46-116); Anion Gap 11 (7-16); Aspartate Amino Transferase 42 U/L (0-34); BUN/Creatinine Ratio 29 Ratio (12-20); Basophils % (Auto) 0 % (0-2.5); Bilirubin,Total 0.3 mg/dL (0.3-1.2); Blood Urea Nitrogen 29 mg/dL (9-23); Calcium 9.1 mg/dL (8.3-10.6); Calcium (Corrected) 9.1 mg/dL (8.5-10.1); Carbon Dioxide 23.7 mMol/L (20.0-31.0); Chloride 104 mMol/L (98-107); Eosinophils # (Auto) 0.2 Thou/mm3 (0.0-0.5); Eosinophils % (Auto) 2 % (0-10); Estimated Creatinine Clearance 54.2 mL/min (>60); Globulin 2.8 gm/dL (2.3-3.5); Glucose 108 mg/dL (74-106); Hematocrit 36.5 % (36.0-46.0); Hemoglobin 11.8 g/dL (12.0-16.0); Immature Granulocytes % (Auto) 1 % (0-0); Immature Granulocytes Auto 0.05 Thou/mm3 (0.00-0.00); Lipase 42 U/L (12-53); Lymphocytes # (Auto) 1.7 Thou/mm3 (1.0-4.8); Lymphocytes % (Auto) 21 % (10-50); Mean Corpuscular HGB Conc 32.3 g/dl (31.0-37.0); Mean Corpuscular Hemoglobin 26.8 pg (25.0-35.0); Mean Corpuscular Volume 83 fL (80-100); Monocytes # (Auto) 0.8 Thou/mm3 (0.0-0.8); Monocytes % (Auto) 10 % (0-12); Neutrophils # (Auto) 5.4 Thou/mm3 (1.8-7.7); Neutrophils % (Auto) 67 % (37-80); Nucleated Red Blood Cell % 0 /100 WBC (0); Osmolality,Calculated 284 (275-295); Platelet Count 289 Thou/mm3 (140-440); Potassium 3.9 mMol/L (3.4-5.1); RDW Standard Deviation 45.3 fL (36.4-46.3); Sodium 139 mMol/L (136-145); Total Protein 6.9 gm/dL (5.7-8.2); White Blood Count 8.1 Thou/mm3 (3.6-11.0); eGFR > 60 See Note
[2024-09-11 02:48] LABS: Bilirubin,Urine Negative (Negative); Blood,Urine Negative (Negative); Clarity,Urine Clear (Clear/Hazy); Color,Urine Lt-Yellow (Lt Yel-Yel); Glucose, Urine Negative (Negative); Ketones,Urine Negative (Negative); Leukocyte Esterase,Urine Positive (Negative); Nitrite,Urine Negative (Negative); PH,Urine 5.5 (5.0-7.0); Protein,Urine Trace (Neg - Trace); RBC,Urine 2 /hpf (0-3); Specific Gravity,Urine 1.022 (1.001-1.035); Urobilinogen,Urine Negative mg/dL (0.0-1.0); WBC,Urine 8 /hpf (0-5)
[2024-09-11] MEDS: CIPROFLOXACIN/D5w 400 MG IVPB 400 MG/200 ML BAG 200 MG IV (03:16)
[2024-09-11 03:17] VITALS: BP 161/94; PULSE 80; RESP 18; TEMP 36.8; O2SAT 94
[2024-09-11 05:00] VITALS: BP 159/92; PULSE 62; RESP 19; O2SAT 95
[2024-09-11 06:22] VITALS: BP 149/98; PULSE 86; RESP 19; TEMP 36.7; O2SAT 95
== END 2024-09-11 06:27 | disposition home or self-care (01) ==
PROVIDERS: Nurse Practitioner Family; Emergency Provider Emergency Medicine; PCP Physician Assistant
DX: N12 Tubulo-interstitial nephritis, not specified as acute or chronic (principal); N81.4 Uterovaginal prolapse, unspecified
CPT/HCPCS: 51702; 36415; 80053; 81001; 83690; 85025; 87086; 96365; 99284; J0744; A9270

== ENCOUNTER 2024-09-24 10:38 | Outpatient (RCR) | payer MEDICARE, MEDICAID, SELFPAY ==
--- NOTE | 2024-09-28 21:12 | CTCFLWUP_ITS ---
Patient: JODI CAAL : 1960 Page 7 of 8 FOLLOW UP NOTE DATE OF SERVICE: 09/24/2024 NAME: JODI CAAL ACCOUNT: [id number] : 1960 AGE: 63 INTERVAL HISTORY: ONCOLOGY HISTORY: DIAGNOSIS: Malignant neoplasm of upper-inner quadrant of left female breast [ICD10] C50.212 Stage IIa (pT2, NX, c M0) ER positive, WA positive, HER2 negative intermediate grade invasive ductal carcinoma of the left breast. S/p left breast partial mastectomy and sentinel lymph node biopsy (10/17/2023.). Prosigna (R) breast cancer gene signature assay score 71, high risk Status post 4 cycles of TC chemotherapy in the adjuvant setting (02/05/2024?04/21/2024). Currently on adjuvant radiation therapy (05/14/2024??) DATE OF DIAGNOSIS: PATHOLOGY: Pro Cigna score 71 high risk with recurrence risk of 16% STAGE/TNM: T2 NX intermediate grade ER/WA positive HER2 negative TREATMENT HISTORY: Care?Plan Start?Date Cycle Day Intent DOCEtaxel?75,?Cyclophosphamide?600 02/05/2024 1 21 Curative?(adjuvant) HISTORY OF PRESENT ILLNESS: Jodi Caal is a 63-year-old ENG speaking female with history of hypertension, hypercholesterolemia has the following oncology history. 09/21/2019: Bilateral screening mammograms 10/12/2022: Unilateral left breast diagnostic mammogram 05/14/2023: Left breast ultrasound and left breast ultrasound-guided percutaneous biopsy 10/17/2023: Left breast partial mastectomy as well as sentinel lymph node biopsy. 12/28/2023: Prosigna (R) breast cancer gene signature assay test? 02/05/2024-04/21/2020: The patient had 4 cycles of adjuvant TC chemotherapy. 05/14/2024: Ms. Caal is started on adjuvant radiation therapy to the left breast. OTHER MEDICAL HISTORY/CONDITIONS: HYPERTENSION SCOLIOSIS HIGH CHOLESTEROL ASTHMA C SECTIONS X2 1993 LEFT FOOT SX, BROKE BIG TOE 2006 TUBAL LIGATION 1993 ?Clone Other Med Hx? FAMILY HISTORY: Father:?FATHER?BLOOD?CANCER Mother:?DENIES Sibling:?BROTHER?ESOPHAGEAL?CANCER Children:?DENIES Cancer History:?LEFT BREAST MAMMOGRAM COMPLETED 2022 ?Clone Family Hx? 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 MEDICATIONS: 1. albuterol - 90 mcg/actuation 1 Puff(s) As needed 2. alendronate - 35 mg 1 tab one tab po q weekly 3. anastrozole - 1 mg 1 tab Daily 4. Calcium Carbonate W/Vitamin D - As directed 5. Citracal + D Slow Release - 600 mg-12.5 mcg (500 unit) 1 tab one tab po twice a day 6. Lasix - 20 mg 1 tab po q daily 7. lisinopril - 20 mg Daily 8. potassium chloride - 8 mEq 1 Capsule one cap po q daily?Palabra Meds? Medications Last Reconciled by Meche Presley MA on 09/24/2024 ALLERGIES: Penicillin V; Penicillin V; BEES; BEES REVIEW OF SYSTEMS: A complete 14-point review of systems was performed and is negative except as noted in interval history. PHYSICAL EXAMINATION: VITAL SIGNS: Temperature?98.2, B/P?137/94, Oxygen?Saturation?95% Weight?168.4?lbs PAIN: 0 - No pain ECOG Performance Status: 0 - Asymptomatic and fully active GENERAL APPEARANCE: Appears well, in no apparent distress, appropriately interactive. HEENT: Normocephalic, no temporal wasting, normal conjunctiva, no scleral icterus, normal hearing, lips without lesions, neck normal range of motion. CARDIOVASCULAR: Not assessed. PULMONARY: Normal respiratory effort, no respiratory distress or use of accessory muscles, speaking in full sentences, no tachypnea. EXTREMITIES: No pedal edema or cyanosis. SKIN: Normal skin appearance. NEUROLOGIC: Alert and oriented x4. PSHYCHIATRIC: Appropriate affect, mood normal, behavior normal, intact thought and speech. LABORATORY DATA: I have personally reviewed and interpreted each of the patient?s relevant lab tests, abnormal findings are below: Date 09/11/24 ??GLUCOSE,RANDOM?(mg/dL) 108?H ??BLOOD?UREA?NITROGEN?(mg/dL) 29?H ??CREATININE?(mg/dL) 1.00 ??SODIUM?(mmol/L) 139 ??POTASSIUM?(mmol/L) 3.9 ??CHLORIDE?(mmol/L) 104 ??CrCl?(CandG)?(ml/min) 56.86 ??AST/SGOT?(Unit/L) 42?H ??ALT/SGPT?(Unit/L) 43 ??ALKALINE?PHOSPHATASE?(Unit/L) 140?H ??BILIRUBIN,?TOTAL?(mg/dL) 0.3 ??PROTEIN?TOTAL?(gm/dl) 6.9 ??ALBUMIN,?SERUM?(gm/dl) 4.1 ??GLOBULIN?(gm/dl) 2.8 ??ALBUMIN/GLOBULIN?RATIO 1.5 ??CALCIUM,?SERUM?(mg/dL) 9.1 ??CALCIUM?SERUM?(CORRECTED)?(mg/dL) 9.1 ASSESSMENT/PLAN: Stage IIa ER positive, WA positive, HER2 negative moderately differentiated invasive ductal carcinoma of the left breast status postlumpectomy and sentinel lymph node biopsy. There is discrepancy regarding the HER2/neustatus. Original biopsy specimen showed HER2 IHC 3+ positive. The lumpectomy specimen was HER2 low, 2+, FISH negativeEchocardiogram showed ejection fraction of 60 to 65%. Status post ultrasound-guided biopsy (05/14/2023)Prosigna (R) breast cancer gene signature assay score is 71, high risk with 16% probability of distant recurrence at 10 years.S/p 4 cycles of adjuvant TC chemotherapy. Tolerated wellThe patient is started on adjuvant radiation therapy on 05/14/2024 to the left breast.. On tamoxifen endocrine therapy No history of blood clots On Citracal Fosamax weekly Discussed bisphosphonate Zometa Once patient is dentally cleared will start on Zometa CBC CMP dental evaluation RETURN TO CLINIC: I will see her back in the clinic in 6 month. BILLING AND COMPLIANCE: I reviewed external records from providers outside my specialty as summarized above. I spent a total of 50 minutes on this patient?s care on the day of their visit excluding time spent related to any billed procedures. This time includes time spent with the patient as well as time spent documenting in the medical record, reviewing patients records and tests, obtaining history, placing orders, communicating with other healthcare professionals, counseling the patient, family or caregiver, and/or care coordination for the diagnoses above. Electronically Signed by: Campos Smith MD T: 9:09 PM CC: Karo?Wilber?(génesis),? PCP: Referring: Wilber grant)Karo This document was completed utilizing speech recognition software. Grammatical errors, random word insertions, pronoun errors, and incomplete sentences are an occasional consequence of this system due to software limitations, ambient noise, and hardware issues. Any formal questions or concerns about the content, text or information contained within the body of this dictation should be directly addressed to the provider for clarification.
== END 2024-09-26 23:59 | disposition home or self-care (01) ==
LOC: SCTC 10:38
PROVIDERS: PCP Physician Assistant; Referring Provider Physician Assistant; Visit Provider Internal Medicine Hematology & Oncology
DX: C50.812 Malignant neoplasm of overlapping sites of left female breast (principal); Z17.0 Estrogen receptor positive status [ER+]; Z17.21 Progesterone receptor positive status; Z17.32 Human epidermal growth factor receptor 2 negative status; Z90.12 Acquired absence of left breast and nipple; Z79.810 Long term (current) use of selective estrogen receptor modulators (SERMs); Z92.21 Personal history of antineoplastic chemotherapy
CPT/HCPCS: 99212; G0463

== ENCOUNTER → 2024-10-16 | Outpatient (CLI) | payer MEDICARE, MEDICAID, SELFPAY ==
--- NOTE | 2024-10-16 12:30 | XR_ITS ---
EXAMINATION: PET/CT FUSION SKULL TO THIGH EXAM DATE AND TIME: October 16, 2024 1315 hours INDICATIONS: Diagnosis breast carcinoma staging prior to treatment CTDI:vol (mGy) 7.32 DLP: (mGycm) 577.95 PROCEDURE: 15.07 mCi FDG was administered intravenously To allow for distribution and uptake of radiotracer, the patient was allowed to rest quietly in a shielded room. Imaging was performed on an integrated 16-slice PET/CT scanner, with scanning from the skull base to the mid thigh. Serum blood glucose at the time of the injection was measured 95 mg/dL. CT scanning was performed without oral or intravenous contrast material. FINDINGS: Head and Neck: There is no steffi hypermetabolism in the neck. The visualized portions of the brain are normal in appearance on CT. Chest: Posttreatment changes left breast Abdomen and Pelvis: There is no steffi hypermetabolism in retroperitoneal or pelvic chains. The spleen is normal in size and FDG avidity. Musculoskeletal: Marrow uptake is within normal range. IMPRESSION: No findings of metastatic disease
== END | disposition home or self-care (01) ==
LOC: CDIM 11:29
PROVIDERS: PCP Physician Assistant; Referring Provider Internal Medicine Hematology & Oncology; Visit Provider Internal Medicine Hematology & Oncology
DX: C50.212 Malignant neoplasm of upper-inner quadrant of left female breast (principal)
CPT/HCPCS: 78815; A9552

== ENCOUNTER → 2024-10-17 | Outpatient (CLI) | payer MEDICARE, MEDICAID, SELFPAY ==
[2024-10-17 09:32] LABS: Basophils % (Auto) 1 % (0-2.5); Eosinophils # (Auto) 0.3 Thou/mm3 (0.0-0.5); Eosinophils % (Auto) 6 % (0-10); Hematocrit 33.7 % (36.0-46.0); Immature Granulocytes % (Auto) 0 % (0-0); Immature Granulocytes Auto 0.01 Thou/mm3 (0.00-0.00); Lymphocytes # (Auto) 1.6 Thou/mm3 (1.0-4.8); Lymphocytes % (Auto) 32 % (10-50); Mean Corpuscular HGB Conc 32.6 g/dl (31.0-37.0); Mean Corpuscular Hemoglobin 27.9 pg (25.0-35.0); Mean Corpuscular Volume 86 fL (80-100); Monocytes # (Auto) 0.5 Thou/mm3 (0.0-0.8); Monocytes % (Auto) 10 % (0-12); Neutrophils # (Auto) 2.6 Thou/mm3 (1.8-7.7); Neutrophils % (Auto) 52 % (37-80); Nucleated Red Blood Cell % 0 /100 WBC (0); Platelet Count 216 Thou/mm3 (140-440); Red Blood Count 3.94 Miln/mm3 (4.00-5.20)
[2024-10-17 09:50] LABS: Alanine Aminotransferase 19 U/L (10-49); Albumin, Serum 3.8 gm/dL (3.4-4.8); Albumin/Globulin Ratio 1.5 (1.2-2.2); Alkaline Phosphatase 106 U/L (46-116); Anion Gap 8 (7-16); Aspartate Amino Transferase 18 U/L (0-34); BUN/Creatinine Ratio 22 Ratio (12-20); Bilirubin,Total 0.5 mg/dL (0.3-1.2); Blood Urea Nitrogen 24 mg/dL (9-23); Calcium 9.4 mg/dL (8.3-10.6); Calcium (Corrected) 9.6 mg/dL (8.5-10.1); Chloride 105 mMol/L (98-107); Creatinine (Component) 1.1 mg/dL (0.6-1.3); Globulin 2.6 gm/dL (2.3-3.5); Glucose 91 mg/dL (74-106); Osmolality,Calculated 287 (275-295); Sodium 142 mMol/L (136-145); Total Protein 6.4 gm/dL (5.7-8.2); eGFR 57 See Note
== END | disposition home or self-care (01) ==
LOC: COPL 08:30 → SCTO 08:31
PROVIDERS: PCP Physician Assistant; Referring Provider Internal Medicine Hematology & Oncology; Visit Provider Internal Medicine Hematology & Oncology
DX: C50.212 Malignant neoplasm of upper-inner quadrant of left female breast (principal)
CPT/HCPCS: 36415; 80053; 85025

== ENCOUNTER → 2024-10-20 | Outpatient (CLI) | payer MEDICARE, MEDICAID, SELFPAY ==
--- NOTE | 2024-10-20 08:00 | XR_ITS ---
Examination: MRI of brain without intravenous contrast. MRI brain with intravenous contrast. Date and time of exam:October 20, 2024 at 0846 hrs. Indications: Diagnosis malignant neoplasm upper inner quadrant left female breast, patient states numbness in hands and feet this month Technique: Multiple axial and sagittal images of the brain to been obtained. Siemens high-resolution 1.52 [place] short bore scanner utilized. Sagittal sections, T1 weighted images, TR 500, TE 14, are performed. Axial sections proton-density and T2-weighted images have been obtained. Inversion recovery axial images, TR 9260, TE 111, TR 2500. Diffusion weighted images, axial sections, TR 4800, TE 128, B value 1000. Axial sections, ADC map, TR 4800, TE 128. Axial and coronal images were also obtained post 15 cc gadolinium administered intravenously. Findings:: Enlargement of the sella turcica is not present. The optic chiasm and infundibular stalk are not remarkable. There is no localized enlargement of the medulla or shanae. Fourth ventricle and cerebellar tonsils appear normal in position. No subacute area of hemorrhage density is seen. Fourth ventricle is midline. Mass in the cerebellopontine angle region is not evident. 7th and 8th nerve complexes exhibit symmetry Globes are symmetrical Orbital musculature including medial lateral rectus muscles do not exhibit abnormality Increased white matter signal is prominent Effacement of the cortical sulcal markings is not identified. Mass effect upon the ventricular system is not identified. Diffusion-weighted images demonstrate no focus of restricted diffusion Contrast images demonstrate no abnormal cerebellar or cerebral enhancing lesions Impression: Negative for acute hemorrhage mass effect or midline shift No acute infarct Prominent white matter change, differential would include accelerated chronic microvascular white matter change, demyelinating disease No abnormal enhancing cerebellar or cerebral metastatic lesions
== END | disposition home or self-care (01) ==
LOC: SMRI 07:39
PROVIDERS: PCP Physician Assistant; Referring Provider Internal Medicine Hematology & Oncology; Visit Provider Internal Medicine Hematology & Oncology
DX: R90.82 White matter disease, unspecified (principal); C50.212 Malignant neoplasm of upper-inner quadrant of left female breast
CPT/HCPCS: 70553; A9579

== ENCOUNTER → 2024-10-28 | Outpatient (CLI) | payer MEDICARE, MEDICAID, SELFPAY ==
--- NOTE | 2024-10-28 14:30 | ECHO_ITS ---
Transthoracic Echo Report Ht (in): 58 Wt (lb): 174 Exam Location: Echo Lab Status: Outpatient Property Custodian: LORRIE Trevizo^^^^ Indications: Procedure Performed: BP: / HR: 68 Technical Quality: Fair MEASUREMENTS (Male / Female) Normal Values 2D ECHO LV Diastolic Diameter PLAX 3.1 cm 4.2 - 5.9 / 3.9 - 5.3 cm LV Systolic Diameter PLAX 2.2 cm IVS Diastolic Thickness 1.3 cm 0.6 - 1.0 / 0.6 - 0.9 cm LVPW Diastolic Thickness 1.1 cm 0.6 - 1.0 / 0.6 - 0.9 cm LV Relative Wall Thickness 0.8 LVOT Diameter 1.9 cm Aortic Root Diameter 2.8 cm LA Systolic Diameter LX 2.4 cm 3.0 - 4.0 / 2.7 - 3.8 cm LV Ejection Fraction MOD BP 66.1 % >= 55 % LV Cardiac Index MOD BP 2664.7 cm?/min?m? LV Ejection Fraction MOD 4C 72.3 % LV Cardiac Index MOD 4C 3688.5 cm?/min?m? LV Ejection Fraction 4C AL 73.2 % LV Cardiac Index 4C AL 3875.0 cm?/min?m? LV Ejection Fraction MOD 2C 60.0 % LV Cardiac Index MOD 2C 1751.8 cm?/min?m? LV Ejection Fraction 2C AL 62.7 % LV Cardiac Index 2C AL 1904.7 cm?/min?m? LA Volume Index 34.4 cm?/m? 16 - 28 cm?/m? Ascending Aorta Diameter 2.7 cm DOPPLER AV Peak Velocity 118.0 cm/s AV Peak Gradient 5.6 mmHg AV Mean Gradient 4.0 mmHg AV Velocity Time Integral 24.9 cm AI Peak Velocity 187.0 cm/s AI Peak Gradient 14.0 mmHg AI Pressure Half Time 351.0 ms LVOT Peak Velocity 98.3 cm/s LVOT Peak Gradient 3.9 mmHg LVOT Velocity Time Integral 25.0 cm LVOT Cardiac Index 2619.7 cm?/min?m? AV Area Cont Eq vti 2.8 cm? AV Area Cont Eq pk 2.4 cm? MV Area PHT 2.7 cm? Mitral E Point Velocity 62.1 cm/s Mitral A Point Velocity 95.3 cm/s Mitral E to A Ratio 0.7 LV E' Lateral Velocity 6.7 cm/s Mitral E to LV E' Lateral Ratio 9.3 LV E' Septal Velocity 5.6 cm/s Mitral E to LV E' Septal Ratio 11.1 TR Peak Velocity 196.0 cm/s TR Peak Gradient 15.4 mmHg PV Peak Velocity 94.7 cm/s PV Peak Gradient 3.6 mmHg RVOT Peak Velocity 63.5 cm/s FINDINGS Left Ventricle Normal left ventricular size, wall thickness, systolic function with no obvious regional wall motion abnormalities. There is grade I diastolic dysfunction of the left ventricle (impaired relaxation pattern). The left ventricular ejection fraction is normal, estimated at 55-60%. Right Ventricle The right ventricle is normal in size and systolic function. The estimated right ventricular systolic pressure, 18 mmHg. Left Atrium The left atrium is normal by two-dimensional, color flow and Doppler imaging with no structural abnormalities, no thrombus formation present. Right Atrium The right atrium is normal by two-dimensional imaging, color flow and Doppler imaging with no structural abnormalities, no thrombus formation present. Atrial Septum The interatrial septum appears normal with no evidence of a shunt. Aorta The aorta is normal by two-dimensional, color flow and Doppler interrogation. Mitral Valve Mild mitral regurgitation. Mild mitral annular calcification. Aortic Valve Trace to mild aortic valve regurgitation. Tricuspid Valve There is mild tricuspid valve regurgitation. Pulmonic Valve Trivial pulmonic valve regurgitation. Vessels The pulmonary artery appears normal. The inferior vena cava pulmonary and hepatic veins appear normal. Pericardium The pericardium is normal by two-dimensional imaging. There is no significant pericardial effusion. CONCLUSIONS Indication: Malignant neoplasm of upper-inner quadrant of left female breast Normal LV size and function. LV EF 55-60%. Diastolic dysfunction stage I. Normal RV size and function. Normal RVSP 22 mmHg. Mild MR, mild MAC, trace AI and mild TR Noe Carlisle (Electronically Signed) Final Date: 30 October 2024 15:14
== END | disposition home or self-care (01) ==
PROVIDERS: PCP Physician Assistant; Referring Provider Internal Medicine Hematology & Oncology; Visit Provider Internal Medicine Hematology & Oncology
DX: I08.3 Combined rheumatic disorders of mitral, aortic and tricuspid valves (principal); C50.212 Malignant neoplasm of upper-inner quadrant of left female breast
CPT/HCPCS: 93306

== ENCOUNTER 2024-10-29 15:12 | Outpatient (RCR) | payer MEDICARE, MEDICAID, SELFPAY ==
--- NOTE | 2024-11-03 00:50 | CTCFLWUP_ITS ---
Patient: JODI CAAL : 1960 Page 7 of 8 FOLLOW UP NOTE DATE OF SERVICE: 10/29/2024 NAME: JODI CAAL ACCOUNT: [id number] : 1960 AGE: 63 INTERVAL HISTORY: Doing well with no new complaints. Patient is on tamoxifen. She also takes alendronate for her bone density ONCOLOGY HISTORY:?[facility] Hx? 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 S/p left breast partial mastectomy and sentinel lymph node biopsy (10/17/2023.). Prosigna (R) breast cancer gene signature assay score 71, high risk Status post 4 cycles of TC chemotherapy in the adjuvant setting (02/05/2024?04/21/2024). adjuvant radiation therapy (05/14/2024??for 4 weeks) DATE OF DIAGNOSIS: 10/17/2023 PATHOLOGY: Pro Cigna score 71 high risk with recurrence risk of 16% STAGE/TNM: T2 NX intermediate grade ER/NJ positive HER2 negative TREATMENT HISTORY: Care?Plan Start?Date Cycle Day Intent DOCEtaxel?75,?Cyclophosphamide?600 02/05/2024 1 21 Curative?(adjuvant) TREATMENT HISTORY: Care?Plan Start?Date Cycle Day Intent DOCEtaxel?75,?Cyclophosphamide?600 02/05/2024 1 21 Curative?(adjuvant) HISTORY OF PRESENT ILLNESS: Jodi Caal is a 63-year-old ENG speaking female with history of hypertension, hypercholesterolemia has the following oncology history. 09/21/2019: Bilateral screening mammograms 10/12/2022: Unilateral left breast diagnostic mammogram 05/14/2023: Left breast ultrasound and left breast ultrasound-guided percutaneous biopsy 10/17/2023: Left breast partial mastectomy as well as sentinel lymph node biopsy. 12/28/2023: Prosigna (R) breast cancer gene signature assay test? 02/05/2024-04/21/2020: The patient had 4 cycles of adjuvant TC chemotherapy. 05/14/2024: Ms. Caal is started on adjuvant radiation therapy to the left breast. OTHER MEDICAL HISTORY/CONDITIONS: HYPERTENSION SCOLIOSIS HIGH CHOLESTEROL ASTHMA C SECTIONS X2 1993 LEFT FOOT SX, BROKE BIG TOE 2007 TUBAL LIGATION 1993 ?Clone Other Med Hx? FAMILY HISTORY: Father:?FATHER?BLOOD?CANCER Mother:?DENIES Sibling:?BROTHER?ESOPHAGEAL?CANCER Children:?DENIES Cancer History:?LEFT BREAST MAMMOGRAM COMPLETED 2022 ?Clone Family Hx? 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 Tobacco?Pack?per?Day:?0 Tobacco?Use:?NEVER ETOH?Use:?SPECIAL?OCCASION?1?BEER Drug?Note:?METH CLEAN X15 YEARS , CBD, THC OILS Social?History?Note:?lives?with?family ?Clone Social Hx? IT COORDINATOR HISTORY: Menarche?-?Age:?15 Menopause:?LAST?CYCLE?AT?54?YEARS?OLD Date?of?last?pap?smear:?2021 Hormone?Use:? CONTROL PILLS USED 40YEARS AGO :?4 Live?Births:?4 Age?1st?:?19 Gynecological?Note:?LEFT?BREAST?LUMP Gynecological?Note?2:?2 DAUGHTERS, 3 SISTERS ?Clone IT COORDINATOR Hx? MEDICATIONS: 1. albuterol - 90 mcg/actuation 1 Puff(s) As needed 2. alendronate - 35 mg 1 tab one tab po q weekly 3. anastrozole - 1 mg 1 tab Daily 4. lisinopril - 40 mg 1 tab Daily 5. tamoxifen - 20 mg 1 tab Daily?Palabra Meds? Medications Last Reconciled by Annel Walsh MA on 10/29/2024 ALLERGIES: Penicillin V; Penicillin V; BEES; BEES REVIEW OF SYSTEMS: A complete 14-point review of systems was performed and is negative except as noted in interval history. PHYSICAL EXAMINATION:?[facility] PE? VITAL SIGNS: Temperature?98.9, B/P?145/85, Oxygen?Saturation?97% Weight?167?lbs PAIN: 0 - No pain GENERAL APPEARANCE: Appears well, in no apparent distress, appropriately interactive. HEENT: Normocephalic, no temporal wasting, normal conjunctiva, no scleral icterus, normal hearing, lips without lesions, neck normal range of motion. CARDIOVASCULAR: Not assessed. PULMONARY: Normal respiratory effort, no respiratory distress or use of accessory muscles, speaking in full sentences, no tachypnea. EXTREMITIES: No pedal edema or cyanosis. SKIN: Normal skin appearance. NEUROLOGIC: Alert and oriented x4. PSHYCHIATRIC: Appropriate affect, mood normal, behavior normal, intact thought and speech. LABORATORY DATA: I have personally reviewed and interpreted each of the patient?s relevant lab tests, abnormal findings are below: Date 09/11/24 10/17/24 ??WHITE?BLOOD?COUNT?(Thou/mm3) 8.1 5.0 ??RED?BLOOD?COUNT?(Miln/mm3) 4.40 3.94?L ??HEMOGLOBIN?(gm/dl) 11.8?L 11.0?L ??HEMATOCRIT?(%) 36.5 33.7?L ??PLATELET?COUNT?(Thou/mm3) 289 216 ??NEUTROPHILS?%,?AUTO?(%) 67 52 ??LYMPH?%,?AUTO?(%) 21 32 ??NEUTROPHILS,?AUTO?(Thou/mm3) 5.4 2.6 ??GLUCOSE,RANDOM?(mg/dL) 108?H 91 ??BLOOD?UREA?NITROGEN?(mg/dL) 29?H 24?H ??CREATININE?(mg/dL) 1.00 1.10 ??SODIUM?(mmol/L) 139 142 ??POTASSIUM?(mmol/L) 3.9 4.0 ??CHLORIDE?(mmol/L) 104 105 ??CrCl?(CandG)?(ml/min) 56.86 50.83 ??AST/SGOT?(Unit/L) 42?H 18 ??ALT/SGPT?(Unit/L) 43 19 ??ALKALINE?PHOSPHATASE?(Unit/L) 140?H 106 ??BILIRUBIN,?TOTAL?(mg/dL) 0.3 0.5 ??PROTEIN?TOTAL?(gm/dl) 6.9 6.4 ??ALBUMIN,?SERUM?(gm/dl) 4.1 3.8 ??GLOBULIN?(gm/dl) 2.8 2.6 ??ALBUMIN/GLOBULIN?RATIO 1.5 1.5 ??CALCIUM,?SERUM?(mg/dL) 9.1 9.4 ??CALCIUM?SERUM?(CORRECTED)?(mg/dL) 9.1 9.6 ASSESSMENT/PLAN:?Edson Smith Assessment/Plan? Stage IIa ER positive, NJ positive, HER2 negative moderately differentiated invasive ductal carcinoma of the left breast status postlumpectomy and sentinel lymph node biopsy. There is discrepancy regarding the HER2/neustatus. Original biopsy specimen showed HER2 IHC 3+ positive. The lumpectomy specimen was HER2 low, 2+, FISH negativeEchocardiogram showed ejection fraction of 60 to 65%. Status post ultrasound-guided biopsy (05/14/2023)Prosigna (R) breast cancer gene signature assay score is 71, high risk with 16% probability of distant recurrence at 10 years.S/p 4 cycles of adjuvant TC chemotherapy. Tolerated wellThe patient is started on adjuvant radiation therapy on 05/14/2024 to the left breast.. On tamoxifen endocrine therapy No history of blood clots On Citracal Fosamax weekly Discussed bisphosphonate Zometa Once patient is dentally cleared will start on Zometa CBC CMP dental evaluation Will refer to neurology as brain MRI showed demyelinating disease Will also order B12 level ORDERS: Will order bilateral mammogram for screening CBC CMP B12 RETURN TO CLINIC: I will see her back in the clinic in 3 months. BILLING AND COMPLIANCE: I reviewed external records from providers outside my specialty as summarized above. I spent a total of 50 minutes on this patient?s care on the day of their visit excluding time spent related to any billed procedures. This time includes time spent with the patient as well as time spent documenting in the medical record, reviewing patients records and tests, obtaining history, placing orders, communicating with other healthcare professionals, counseling the patient, family or caregiver, and/or care coordination for the diagnoses above. Electronically Signed by: Campos Smith MD T: 12:48 AM CC: Karo?Wilber?(woody,? PCP: Referring: Karo Merino (tipton) This document was completed utilizing speech recognition software. Grammatical errors, random word insertions, pronoun errors, and incomplete sentences are an occasional consequence of this system due to software limitations, ambient noise, and hardware issues. Any formal questions or concerns about the content, text or information contained within the body of this dictation should be directly addressed to the provider for clarification.
== END 2024-11-24 23:59 | disposition home or self-care (01) ==
LOC: SCTC 15:12
PROVIDERS: PCP Physician Assistant; Referring Provider Physician Assistant; Visit Provider Internal Medicine Hematology & Oncology
DX: C50.812 Malignant neoplasm of overlapping sites of left female breast (principal); Z17.0 Estrogen receptor positive status [ER+]; Z17.21 Progesterone receptor positive status; Z17.32 Human epidermal growth factor receptor 2 negative status; Z90.12 Acquired absence of left breast and nipple; Z92.3 Personal history of irradiation; Z92.21 Personal history of antineoplastic chemotherapy; Z79.810 Long term (current) use of selective estrogen receptor modulators (SERMs)
CPT/HCPCS: 99212; G0463

== ENCOUNTER → 2024-11-26 | Outpatient (CLI) | payer MEDICARE, MEDICAID, SELFPAY ==
--- NOTE | 2024-11-26 09:45 | XR_ITS ---
Examination: Screening digital mammography, bilateral Computer aided detection 3-D breast Tomosynthesis, bilateral Date and time of exam: November 26, 2024 0911 hours Compared to September 23, 2019 Indication: Screening Technique: Nonmagnified MLO, CC views of the breasts to been obtained, reconstructed from 3-D Tomosynthesis images. R2 computer aided detection program utilized for evaluation of suspicious masses and/or abnormal calcifications. 3-D Tomosynthesis images obtained. Findings: Scattered areas of fibroglandular density Scar formation left breast consistent with patient's history of treated left breast cancer including skin thickening left breast Impression: BI-RADS Category 3: Probably benign findings One additional 6 month left mammogram follow-up is needed to document stability of likely posttreatment architectural distortion left breast
== END | disposition home or self-care (01) ==
PROVIDERS: PCP Physician Assistant; Referring Provider Internal Medicine Hematology & Oncology; Visit Provider Internal Medicine Hematology & Oncology
DX: Z12.31 Encounter for screening mammogram for malignant neoplasm of breast (principal); R92.333 Mammographic heterogeneous density, bilateral breasts; C50.212 Malignant neoplasm of upper-inner quadrant of left female breast
CPT/HCPCS: 77063; 77067

== ENCOUNTER 2024-12-02 14:25 | Outpatient (RCR) | payer MEDICARE, MEDICAID, SELFPAY | END 2024-12-24 23:59 | disposition home or self-care (01) | LOC: SCTC 14:25 | PROVIDERS: PCP Physician Assistant; Referring Provider Physician Assistant; Visit Provider Internal Medicine Hematology & Oncology | DX: C50.812 Malignant neoplasm of overlapping sites of left female breast (principal); Z17.0 Estrogen receptor positive status [ER+]; Z17.21 Progesterone receptor positive status; Z17.32 Human epidermal growth factor receptor 2 negative status; Z90.12 Acquired absence of left breast and nipple; Z92.3 Personal history of irradiation | CPT/HCPCS: 96372; J3420 ==

== ENCOUNTER → 2024-12-09 | Outpatient (BNVA) | payer MEDICARE, MEDICAID, SELFPAY | END | disposition home or self-care (01) | PROVIDERS: PCP Physician Assistant; Referring Provider Physician Assistant; Visit Provider Urology | DX: N39.0 Urinary tract infection, site not specified (principal); N31.9 Neuromuscular dysfunction of bladder, unspecified | CPT/HCPCS: 99203; G0463 ==

== ENCOUNTER → 2024-12-30 | Outpatient (CLI) | payer MEDICARE, MEDICAID, SELFPAY ==
[2024-12-30 16:41] LABS: Basophils % (Auto) 1 % (0-2.5); Eosinophils # (Auto) 0.2 Thou/mm3 (0.0-0.5); Eosinophils % (Auto) 5 % (0-10); Hematocrit 36.6 % (36.0-46.0); Hemoglobin 12.3 g/dL (12.0-16.0); Immature Granulocytes % (Auto) 0 % (0-0); Immature Granulocytes Auto 0.01 Thou/mm3 (0.00-0.00); Lymphocytes # (Auto) 1.5 Thou/mm3 (1.0-4.8); Lymphocytes % (Auto) 34 % (10-50); Mean Corpuscular HGB Conc 33.6 g/dl (31.0-37.0); Mean Corpuscular Hemoglobin 28.9 pg (25.0-35.0); Mean Corpuscular Volume 86 fL (80-100); Monocytes # (Auto) 0.4 Thou/mm3 (0.0-0.8); Monocytes % (Auto) 9 % (0-12); Neutrophils # (Auto) 2.2 Thou/mm3 (1.8-7.7); Neutrophils % (Auto) 51 % (37-80); Nucleated Red Blood Cell % 0 /100 WBC (0); Platelet Count 187 Thou/mm3 (140-440); RDW Standard Deviation 43.8 fL (36.4-46.3); Red Blood Count 4.25 Miln/mm3 (4.00-5.20); White Blood Count 4.3 Thou/mm3 (3.6-11.0)
[2024-12-30 17:08] LABS: Alanine Aminotransferase 24 U/L (10-49); Albumin, Serum 4.2 gm/dL (3.4-4.8); Albumin/Globulin Ratio 1.4 (1.2-2.2); Alkaline Phosphatase 117 U/L (46-116); Anion Gap 8 (7-16); Aspartate Amino Transferase 23 U/L (0-34); BUN/Creatinine Ratio 20 Ratio (12-20); Bilirubin,Total 0.3 mg/dL (0.3-1.2); Blood Urea Nitrogen 28 mg/dL (9-23); Calcium 8.9 mg/dL (8.3-10.6); Calcium (Corrected) 8.9 mg/dL (8.5-10.1); Carbon Dioxide 25.9 mMol/L (20.0-31.0); Chloride 107 mMol/L (98-107); Creatinine (Component) 1.4 mg/dL (0.6-1.3); Globulin 2.9 gm/dL (2.3-3.5); Glucose 91 mg/dL (74-106); Osmolality,Calculated 286 (275-295); Potassium 4.1 mMol/L (3.4-5.1); Sodium 141 mMol/L (136-145); Total Protein 7.1 gm/dL (5.7-8.2); eGFR 43 See Note
== END | disposition home or self-care (01) ==
LOC: SCTO 14:58
PROVIDERS: PCP Physician Assistant; Referring Provider Internal Medicine Hematology & Oncology; Visit Provider Internal Medicine Hematology & Oncology
DX: C50.212 Malignant neoplasm of upper-inner quadrant of left female breast (principal)
CPT/HCPCS: 36415; 80053; 85025

== ENCOUNTER 2024-12-31 12:57 | Outpatient (RCR) | payer MEDICARE, MEDICAID, SELFPAY | END 2025-01-24 23:59 | disposition home or self-care (01) | LOC: SCTC 12:57 | PROVIDERS: PCP Physician Assistant; Referring Provider Internal Medicine Hematology & Oncology; Visit Provider Internal Medicine Hematology & Oncology | DX: C50.812 Malignant neoplasm of overlapping sites of left female breast (principal); Z17.0 Estrogen receptor positive status [ER+]; Z17.21 Progesterone receptor positive status; Z17.32 Human epidermal growth factor receptor 2 negative status; Z90.12 Acquired absence of left breast and nipple; Z92.3 Personal history of irradiation; Z92.21 Personal history of antineoplastic chemotherapy; Z79.810 Long term (current) use of selective estrogen receptor modulators (SERMs) | CPT/HCPCS: 80053; 85025; 96365; 96372; J3420; J3489 ==

== ENCOUNTER 2025-01-27 13:37 | Outpatient (RCR) | payer MEDICARE, MEDICAID, SELFPAY | END 2025-02-23 23:59 | disposition home or self-care (01) | LOC: SCTC 13:37 | PROVIDERS: PCP Physician Assistant; Referring Provider Physician Assistant; Visit Provider Nurse Practitioner Family | DX: C50.812 Malignant neoplasm of overlapping sites of left female breast (principal); Z17.0 Estrogen receptor positive status [ER+]; Z17.21 Progesterone receptor positive status; Z17.32 Human epidermal growth factor receptor 2 negative status; Z90.12 Acquired absence of left breast and nipple; Z92.3 Personal history of irradiation; Z79.810 Long term (current) use of selective estrogen receptor modulators (SERMs) | CPT/HCPCS: 96372; J3420 ==

== ENCOUNTER → 2025-02-20 | Outpatient (CLI) | payer MEDICARE, MEDICAID, SELFPAY ==
--- NOTE | 2025-02-20 14:00 | ECHO_ITS ---
Transthoracic Echo Report Ht (in): 58 Wt (lb): 174 Exam Location: Echo Lab Status: Preadmit Sealer Aircraft: Oneida Santos Indications: Procedure Performed: BP: / HR: Technical Quality: Adequate MEASUREMENTS (Male / Female) Normal Values 2D ECHO LV Diastolic Diameter PLAX 3.6 cm 4.2 - 5.9 / 3.9 - 5.3 cm LV Systolic Diameter PLAX 2.1 cm IVS Diastolic Thickness 0.8 cm 0.6 - 1.0 / 0.6 - 0.9 cm LVPW Diastolic Thickness 1.1 cm 0.6 - 1.0 / 0.6 - 0.9 cm LV Relative Wall Thickness 0.5 LVOT Diameter 2.3 cm Ascending Aorta Diameter 2.5 cm DOPPLER AV Peak Velocity 93.8 cm/s AV Peak Gradient 3.5 mmHg LVOT Peak Velocity 88.8 cm/s LVOT Peak Gradient 3.2 mmHg AV Area Cont Eq pk 3.9 cm? MV Area PHT 3.2 cm? Mitral E Point Velocity 67.4 cm/s Mitral A Point Velocity 69.8 cm/s Mitral E to A Ratio 1.0 LV E' Lateral Velocity 10.6 cm/s Mitral E to LV E' Lateral Ratio 6.4 LV E' Septal Velocity 5.3 cm/s Mitral E to LV E' Septal Ratio 12.6 PV Peak Velocity 102.0 cm/s PV Peak Gradient 4.2 mmHg FINDINGS Left Ventricle Normal left ventricular size, wall thickness, systolic function with no obvious regional wall motion abnormalities. Normal left ventricular diastolic filling pattern for age. The ejection fraction is visually estimated at 60%. Right Ventricle The right ventricle is normal in size and systolic function. The estimated right ventricular systolic pressure can not be determined due to innadequate Doppler signal. Left Atrium The left atrium is normal by two-dimensional, color flow and Doppler imaging with no structural abnormalities, no thrombus formation present. Right Atrium The right atrium is normal by two-dimensional imaging, color flow and Doppler imaging with no structural abnormalities, no thrombus formation present. Atrial Septum The interatrial septum appears normal with no evidence of a shunt. Aorta The aorta is normal by two-dimensional, color flow and Doppler interrogation. Mitral Valve Mild thickening of the mitral valve leaflets. Mild prolapse of the posterior mitral valve leaflet. Trace mitral regurgitation. Aortic Valve The aortic valve is trileaflet and normal by two-dimensional, color flow and Doppler interrogation. There is no significant aortic valve regurgitation. Tricuspid Valve The tricuspid valve is normal by two-dimensional, color flow and Doppler interrogation. There is trace tricuspid regurgitation. Pulmonic Valve The pulmonic valve is not well visualized. There is no significant pulmonic valve regurgitation. Vessels The pulmonary artery appears normal. The inferior vena cava pulmonary and hepatic veins appear normal. Pericardium The pericardium is normal by two-dimensional imaging. There is no significant pericardial effusion. CONCLUSIONS Indications: Malignant Neoplasm of Upper-Inner Quadrant of Left Female Breast Normal LV. Estimated EF 65%. Normal Diastology. RV Normal. Trace MR, TR. No Pericardial Effusion. Robby Zuniga (Electronically Signed) Final Date: 23 February 2025 09:49
== END | disposition home or self-care (01) ==
LOC: SDIM 13:17
PROVIDERS: PCP Physician Assistant; Referring Provider Internal Medicine Hematology & Oncology; Visit Provider Internal Medicine Hematology & Oncology
DX: I08.1 Rheumatic disorders of both mitral and tricuspid valves (principal); C50.212 Malignant neoplasm of upper-inner quadrant of left female breast
CPT/HCPCS: 93306

== ENCOUNTER 2025-04-07 13:08 | Outpatient (RCR) | payer MEDICARE, MEDICAID, SELFPAY ==
--- NOTE | 2025-04-07 14:00 | CTCFLWUP_ITS ---
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 S/p left breast partial mastectomy and sentinel lymph node biopsy (10/17/2023.). Prosigna (R) breast cancer gene signature assay score 71, high risk Status post 4 cycles of TC chemotherapy in the adjuvant setting (02/05/2024?04/21/2024). adjuvant radiation therapy (05/14/2024??for 4 weeks) DATE OF DIAGNOSIS: 10/17/2023 PATHOLOGY: Pro Cigna score 71 high risk with recurrence risk of 16% STAGE/TNM: T2 NX intermediate grade ER/WY positive HER2 negative TREATMENT HISTORY: Care?Plan Start?Date Cycle Day Intent DOCEtaxel?75,?Cyclophosphamide?600 02/05/2024 1 21 Curative?(adjuvant) TREATMENT HISTORY: Care?Plan Start?Date Cycle Day Intent DOCEtaxel?75,?Cyclophosphamide?600 02/05/2024 1 21 Curative?(adjuvant) Zoledronic?Acid?4?mg?adjuvant 12/31/2024 1 180 Palliative HISTORY OF PRESENT ILLNESS: Jodi Caal is a 64-year-old ENG speaking female with history of hypertension, hypercholesterolemia has the following oncology history. 09/21/2019: Bilateral screening mammograms 10/12/2022: Unilateral left breast diagnostic mammogram 05/14/2023: Left breast ultrasound and left breast ultrasound-guided percutaneous biopsy 10/17/2023: Left breast partial mastectomy as well as sentinel lymph node biopsy. 12/28/2023: Prosigna (R) breast cancer gene signature assay test? 02/05/2024-04/21/2020: The patient had 4 cycles of adjuvant TC chemotherapy. 05/14/2024: Ms. Caal is started on adjuvant radiation therapy to the left breast. 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 CONTROL PILLS USED 40YEARS AGO :?4 Live?Births:?4 Age?1st?:?19 Gynecological?Note:?LEFT?BREAST?LUMP Gynecological?Note?2:?2 DAUGHTERS, 3 SISTERS MEDICATIONS: 1. albuterol - 90 mcg/actuation 1 Puff(s) As needed 2. alendronate - 35 mg 1 tab one tab po q weekly 3. anastrozole - 1 mg 1 tab Daily 4. lisinopril - 40 mg 1 tab Daily 5. tamoxifen - 20 mg 1 tab Daily Medications Last Reconciled by Annel Ferrari MD on 04/07/2025 ALLERGIES: Penicillin V; Penicillin V; BEES; BEES REVIEW OF SYSTEMS: A complete 14-point review of systems was performed and is negative except as noted in interval history. PHYSICAL EXAMINATION: VITAL SIGNS: Temperature?98, B/P?149/91, Oxygen?Saturation?96% Weight?171?lbs PAIN: 0 - No pain ECOG Performance Status: 0 - Asymptomatic and fully active GENERAL APPEARANCE: Appears well, in no apparent distress, appropriately interactive. HEENT: Normocephalic, no temporal wasting, normal conjunctiva, no scleral icterus, normal hearing, lips without lesions, neck normal range of motion. CARDIOVASCULAR: Not assessed. PULMONARY: Normal respiratory effort, no respiratory distress or use of accessory muscles, speaking in full sentences, no tachypnea. EXTREMITIES: No pedal edema or cyanosis. SKIN: Normal skin appearance. NEUROLOGIC: Alert and oriented x4. PSHYCHIATRIC: Appropriate affect, mood normal, behavior normal, intact thought and speech. LABORATORY DATA: I have personally reviewed and interpreted each of the patient?s relevant lab tests, abnormal findings are below: Date 10/17/24 12/30/24 ??WHITE?BLOOD?COUNT?(Thou/mm3) 5.0 4.3 ??RED?BLOOD?COUNT?(Miln/mm3) 3.94?L 4.25 ??HEMOGLOBIN?(gm/dl) 11.0?L 12.3 ??HEMATOCRIT?(%) 33.7?L 36.6 ??PLATELET?COUNT?(Thou/mm3) 216 187 ??NEUTROPHILS?%,?AUTO?(%) 52 51 ??LYMPH?%,?AUTO?(%) 32 34 ??NEUTROPHILS,?AUTO?(Thou/mm3) 2.6 2.2 ??GLUCOSE,RANDOM?(mg/dL) 91 91 ??BLOOD?UREA?NITROGEN?(mg/dL) 24?H 28?H ??CREATININE?(mg/dL) 1.10 1.40?H ??SODIUM?(mmol/L) 142 141 ??POTASSIUM?(mmol/L) 4.0 4.1 ??CHLORIDE?(mmol/L) 105 107 ??CrCl?(CandG)?(ml/min) 50.83 39.94 ??AST/SGOT?(Unit/L) 18 23 ??ALT/SGPT?(Unit/L) 19 24 ??ALKALINE?PHOSPHATASE?(Unit/L) 106 117?H ??BILIRUBIN,?TOTAL?(mg/dL) 0.5 0.3 ??PROTEIN?TOTAL?(gm/dl) 6.4 7.1 ??ALBUMIN,?SERUM?(gm/dl) 3.8 4.2 ??GLOBULIN?(gm/dl) 2.6 2.9 ??ALBUMIN/GLOBULIN?RATIO 1.5 1.4 ??CALCIUM,?SERUM?(mg/dL) 9.4 8.9 ??CALCIUM?SERUM?(CORRECTED)?(mg/dL) 9.6 8.9 ASSESSMENT/PLAN: Stage IIa ER positive, WY positive, HER2 negative moderately differentiated invasive ductal carcinoma of the left breast status postlumpectomy and sentinel lymph node biopsy. There is discrepancy regarding the HER2/neustatus. Original biopsy specimen showed HER2 IHC 3+ positive. The lumpectomy specimen was HER2 low, 2+, FISH negativeEchocardiogram showed ejection fraction of 60 to 65%. Status post ultrasound-guided biopsy (05/14/2023)Prosigna (R) breast cancer gene signature assay score is 71, high risk with 16% probability of distant recurrence at 10 years.S/p 4 cycles of adjuvant TC chemotherapy. Tolerated wellThe patient is started on adjuvant radiation therapy on 05/14/2024 to the left breast.. On Citracal Fosamax weekly-stopped Patient had bad arthritis and says that her pain get worse and after she got Zometa infusion Continue to hold Zometa for now Will need mammogram in [facility] after that Advised to continue taking her anastrozole Rosemary testing ORDERS: Order # Description [id number] Infusion 1 Hour [id number] Infusion 1 Hour [id number] Infusion 1 Hour [id number] Infusion 1 Hour [id number] Infusion 1 Hour RETURN TO CLINIC: I reviewed the diagnosis, prognosis, and recommended treatment/procedure options with the patient (and/or their legal congressional representative), including the potential benefits, risks, side effects and alternative therapies. We also discussed the option of no treatment and the possibility of clinical trial participation, if applicable. All questions were addressed, and they demonstrated understanding. They provided informed consent to proceed with the proposed plan of care. BILLING AND COMPLIANCE: I reviewed external records from providers outside my specialty as summarized above. I spent a total of 50 minutes on this patient?s care on the day of their visit excluding time spent related to any billed procedures. This time includes time spent with the patient as well as time spent documenting in the medical record, reviewing patients records and tests, obtaining history, placing orders, communicating with other healthcare professionals, counseling the patient, family or caregiver, and/or care coordination for the diagnoses above. Electronically Signed by: Campos Smith MD T: 1:58 PM CC: Karo?Wilber?(woody,MARTHA PCP: Referring: Karo Merino (tipton) This document was completed utilizing speech recognition software. Grammatical errors, random word insertions, pronoun errors, and incomplete sentences are an occasional consequence of this system due to software limitations, ambient noise, and hardware issues. Any formal questions or concerns about the content, text or information contained within the body of this dictation should be directly addressed to the provider for clarification.
== END 2025-04-26 23:59 | disposition home or self-care (01) ==
LOC: SCTC 13:08
PROVIDERS: PCP Physician Assistant; Referring Provider Physician Assistant; Visit Provider Internal Medicine Hematology & Oncology
DX: C50.212 Malignant neoplasm of upper-inner quadrant of left female breast (principal); Z17.0 Estrogen receptor positive status [ER+]; Z17.21 Progesterone receptor positive status; Z17.32 Human epidermal growth factor receptor 2 negative status; Z90.12 Acquired absence of left breast and nipple; Z92.3 Personal history of irradiation; Z92.21 Personal history of antineoplastic chemotherapy; M19.90 Unspecified osteoarthritis, unspecified site; Z79.811 Long term (current) use of aromatase inhibitors
CPT/HCPCS: 99212; G0463

== ENCOUNTER 2025-04-28 08:30 | Outpatient (AMB) | payer MEDICARE, MEDICAID, SELFPAY ==
--- NOTE | 2025-04-28 08:51 | ORTHONT_ITS ---
Vital signs 04/28/25 08:59 Height 1.5 m Height Method Measured Weight 75.863 kg Weight Measurement Method Standing Scale BMI 33.7 BP 143/96 H Blood Pressure Source Automatic Cuff Blood Pressure Location Left Upper Arm Position Sitting Respiration 18 Pulse 85 Pulse Source Monitor Temp 97.6 F Temp Source Temporal Artery Scan Pulse Oximetry (%) 94 L Oxygen Delivery Method Room Air Med/Allergies Allergies & Medications Allergies bee venom protein (honey bee) Allergy (Severe, Verified 04/28/25 09:03) Swelling of Lip/Tongue/Throat Penicillins Allergy (Severe, Verified 04/28/25 09:03) Swelling of Lip/Tongue/Throat Medication Reconciliation hydrocodone 10 mg-acetaminophen 325 mg tablet 1 tab PO Q6H PRN pain #40 tabs 10/17/23 [Rx Confirmed 04/28/25] carvedilol 3.125 mg tablet 3.125 mg PO BID 09/08/24 [History Confirmed 04/28/25] lisinopril 40 mg tablet 40 mg PO QDAY #30 tabs 09/10/24 [Rx Confirmed 04/28/25] meloxicam 7.5 mg tablet 7.5 mg PO QDAY #45 tabs 04/28/25 [Rx] Exam Exam Patient is in no acute distress and is cooperative with the examination today. Breathing is nonlabored. In no respiratory distress. Bilateral extremities were evaluated and demonstrates sensation intact to light touch. Palpable pedal pulses are present. No significant edema is present. Bilateral hips were examined. The patient has no pain with log roll of the hips. Internal rotation to 30 degrees and external rotation to 30 degrees is painless. Negative FADIR. The left knee was examined. The left knee is in varus alignment. Range of motion from 0-115 degrees. Knee is stable to varus and valgus as well as AP translation with <5mm. Patient has a negative McMurrays. There is no pain with patellofemoral compression and no crepitus noted. The knee is tender to palpation medially. The right knee was also examined. The right knee is in varus alignment. Range of motion from 0-120 degrees. Knee is stable to varus and valgus as well as AP translation with <5mm. Patient has a negative McMurrays. There is no pain with patellofemoral compression and no crepitus noted. The knee is tender to palpation medially. Assessment and Plan Problem List (1) Arthritis of both knees: Status: Acute Plan: Patient is a pleasant 64-year-old female with bilateral knee pain and bilateral knee arthritis. She has a lot of pain medially and is in excruciating pain. Recommend knee cortisone injection as patient would like to proceed with conservative treatment at this time. The risks and benefits of the procedure were reviewed with the patient and patient gave verbal consent to continue with the procedure. Procedure: performed by Dr. Kelly Using sterile technique the left knee was thoroughly prepped with alcohol, and approximately 1 cc of Depo-Medrol 80mg/mL and 4 cc of 0.2% ropivacaine was injected without resistance into the medial tibial femoral joint space. The patient tolerated the procedure. Recommend knee cortisone injection as patient would like to proceed with conservative treatment at this time. The risks and benefits of the procedure were reviewed with the patient and patient gave verbal consent to continue with the procedure. Procedure: performed by Dr. Kelly Using sterile technique the Right knee was thoroughly prepped with alcohol, and approximately 1 cc of Depo-Medrol 80mg/mL and 4 cc of 0.2% ropivacaine was injected without resistance into the medial tibial femoral joint space. The patient tolerated the procedure. Office Procedures GNS Level of Care Nursing/Assessment Patient Status: Initial/New Patient Nursing Assessment/Reassesment: Medication Reconciliation, Orthostatic Vitals, Update PMH in EMR and Vital Signs Coordination of Care: Complex Care and Chronic Disease 1-5, Education Complex Pt/Fam, Consent,records obtained, informed consent, 1 Ins Authorization, 4+ Authorizations needed, Results/Orders obtained and Staff clarify orders New Patient Charge New Patient Point Assignment: [id number] New Patient Point Charge: [employer] Level 3 (5064-2756) Surgical Proc/IM SQ injection Major Surgical Procedure: Yes (BILATERAL KNEE INJECTION) Medication Given Medication Given Medication Given: Yes Documented Dose Given: 1 Route: Infiitration Medication Given Medication Given Medication Given: Yes Documented Dose Given: 1 Route: Infiitration Medication Given Medication Given Medication Given: Yes Documented Dose Given: 4 Route: Infiitration Medication Given Medication Given Medication Given: Yes Documented Dose Given: 4 Route: Infiitration Office Meds methylprednisolone acetate 80 mg/mL suspension for injection Performing Provider: Ronny Kelly MD Performing Location: [facility] Administered by: Ronny Kelly MD on 04/28/25 09:59 Dose Route Admin Location Dispensed Lot Number Expiration Date [facility] Company Controller 80 mg intra-articular 1 mL [id number] 01/23/27 [address]-2 [employer] methylprednisolone acetate 80 mg/mL suspension for injection Performing Provider: Ronny Kelly MD Performing Location: [facility] Administered by: Ronny Kelly MD on 04/28/25 09:59 Dose Route Admin Location Dispensed Lot Number Expiration Date [facility] Company Controller 80 mg intra-articular 1 mL [id number] 01/23/27 [address]-1 [employer] ropivacaine (PF) 2 mg/mL (0.2 %) injection solution Performing Provider: Ronny Kelly MD Performing Location: [facility] Administered by: Ronny Kelly MD on 04/28/25 09:59 Dose Route Admin Location Dispensed Lot Number Expiration Date [place] Company Controller 20 mL Infiltration 20 mL [id number] 09/25/27 53331-063-75 [facility] ropivacaine (PF) 2 mg/mL (0.2 %) injection solution Performing Provider: Ronny Kelly MD Performing Location: [facility] Administered by: Ronny Kelly MD on 04/28/25 09:59 Dose Route Admin Location Dispensed Lot Number Expiration Date [facility] Company Controller 20 mL Infiltration 20 mL [id number] 09/25/27 60834-974-17 [facility] [place] Intake Visit Data Collection New Patient or Established: New Patient (never been to [facility]) Reason for Visit:: PAIN LEFT KNEE Seen by Clinical Staff ONLY (RN/MA): No Animal Geneticist Required: No PCP or OBGYN visit in last 3 months: Yes Hx Now: No Do You Feel Safe at Home: Yes Authorities Contacted: N/A Questionairres Past Medical History Past Medical History Have you ever been diagnosed with any of the following: Neurological Problems Cerebrovascular Accident (CVA): No Transient Ischemic Attacks (TIA): No Dementia: No Alzheimer's Disease: No Parkinson's Disease: No Brain Tumor: No Meningitis: No Seizures: No Epilepsy: No Multiple Sclerosis: No Cerebral Palsy: No Amyotrophic Lateral Sclerosis (ALS/Nisa Gehrig's): No Guillain-[place] Syndrome: No Spina Bifida: No Paralysis: No Peripheral Neuropathy: No Villa's Palsy: No Subdural Hematoma: No Migraine: No Head Trauma: No Spinal Cord Injury: No Traumatic Brain Injury: No Cardiology Problems Myocardial Infarction: No Cardiac Arrhythmia: No Atrial Fibrillation: No Angina: No Heart Murmur: No Coronary Artery Disease: No Atherosclerotic Heart Disease: No Peripheral Vascular Disease: No Hypercholesterolemia: Yes Aneurysm: No Congestive Heart Failure: No Congenital Heart Disease: No Valvular Heart Disease: No Rheumatic Fever: No Cardiomyopathy: No Edema: No Pericarditis: No Cellulitis: No Deep Vein Thrombosis: No Hypertension: Yes Hypotension: No Varicose Veins: No Respiratory Problems Chronic Obstructive Pulmonary Disease (COPD): No Asthma: Yes Bronchitis: No Emphysema: No Pneumonia: Yes Pulmonary Fibrosis: No Tuberculosis: No Pulmonary Embolism: No Pulmonary Edema: No Sleep Apnea: No Stomache/Intestinal Problems Hepatitis: No Cirrhosis: No Pancreatitis: No Celiac Disease: No Gall Bladder Disease: No Gastrointestinal Bleed: No Esophageal Varices: No Guerrero's Esophagus: No Colitis: No Ulcerative Colitis: No Diverticulitis: Yes Diverticulosis: Yes Ulcer: No Colorectal Cancer: No Irritable Bowel: No Crohn's Disease: No Obstructive Bowel: No Hiatal Hernia: No Hemorrhoids: No Gastroesophageal Reflux Disease: No Obesity: Yes Genital/Urinary Problems Renal Disease: No Kidney Stones: Yes Polycystic Kidney Disease: No Neurogenic Bladder: No Inguinal Hernia: No Dialysis: No Reproductive Problems Breast Cancer: Yes Endometriosis: No Pelvic Inflammatory Disease: No Previous Pregnancies: Yes Uterine Prolapse: Yes Musculoskeletal Problems Muscular Dystrophy: No Myasthenia Gravis: No Marfan's Syndrome: No Bone Cancer: No Arthritis: Yes Rheumatoid Arthritis: No Osteoporosis: Yes Degenerative Disk Disease: Yes Gout: Yes Scoliosis: Yes Carpal Tunnel Syndrome: No Fibromyalgia: No Fractures: Yes Degenerative Joint Disease: No Osteomyelitis: No Poliovirus: No Head,Eye,Nose,Throat Problems Cataracts: No Glaucoma: No Blind: No Retinal Detachment: No Macular Degeneration: No Chronic Ear Infections: No Deafness: No Eye Prosthesis: No Endocrine Problems Diabetes Mellitus Type 1: No Diabetes Mellitus Type 2: No Hypoglycemia: No Merle's Syndrome: No [place]'s Disease: No Hyperthyroidism: No Hypothyroidism: No Parathyroid Disease: No Pituitary Disease: No Systemic Lupus Erythematosus: No Syndrome of Inappropriate Antidiuretic Hormone: No Adrenal Disease: No Graves' Disease: No Blood Problems Anemia: Yes Leukemia: No Hemophilia: No Thalassemia: No Sickle Cell Disease: No Clotting Problems: No Psychologic Problems Schizophrenia: No Recreational Drug Use: No Bipolar Disorder: No Depression: No Anxiety: No Behavior Problems: No Self-Mutilation: No Attention Deficit Disorder: No Attention Deficit Hyperactivity Disorder: No Depression: No Post Traumatic Stress Disorder: No Eating Disorder: No Other Problems Hospitalization: No Down Syndrome: No Autism: No Developmental Delay: No Shingles: No Falls: No Blood Transfusions: No Blood Transfusion Reaction: No Anesthesia Reactions: No Organ Transplant: No Chemotherapy: No Radiation Therapy: No Hyperbaric Therapy: No MRSA: No VRSA: No Vancomycin-Resistant Enterococci: No Human Immunodeficiency Virus (HIV): No Chicken Pox: Yes Rubella (Martiniquais Measles): No Pertussis: No Clostridium Difficile: No Cancer: Yes Cervical Cancer: No Lung Cancer: No Ovarian Cancer: No Surgical History Carotid Endarterectomy: No Coronary Artery Bypass Graft: No Valve Replacement: No Hysterectomy: No Pacemaker: No Thyroidectomy: No Subjective Visit Visit for: new patient and knee Immunization / Flu Flu Vaccine in the Last 12 Months: Yes Flu Vaccine Exclusion Criteria: Already Received History of Present Illness Chief complaint: PAIN LEFT KNEE Date of injury / onset of symptoms: 2 MONTHS He is a pleasant 64-year-old female with bilateral knee pain. She has a history of breast cancer. Her pain is medial. She has not had any injections in the past. She has had an infusion and this really triggered her pain for her breast cancer. She is able to walk but she has a lot of pain medially Personal History Occupation: DISABLED Red flag PMH: none BMI Counceling provided: Yes Pain Pain level (0-10): 10 Pain location: anterior Pain quality: sharp Pain timing: night, increases with activity and stairs Associated signs & symptoms: stiffness Ambulatory data Ambulatory device: cane Treatments Number of previous injections: 0 Improvement with previous injections: No Number of Physical Therapy sessions: 0 Improvement with PT: No Improvement with NSAIDS: yes Review of Systems Review of Systems: All systems negative unless otherwise noted in HPI.
[2025-04-28 08:59] VITALS: BP 143/96; PULSE 85; RESP 18; TEMP 36.4; O2SAT 94; BMI 33.7
--- NOTE | 2025-04-28 09:05 | XR_ITS ---
Examination: Bilateral knees 2 views Right lateral knee left lateral knee 2 views Bilateral axial knees single view TECHNIQUE: Bilateral AP knees standing single view, bilateral PA knees standing single view flexion Standing right lateral knee left lateral knee 2 views Bilateral axial knees single view total 5 views Date and time: April 28, 2025 0915 hours INDICATIONS: Bilateral knee pain beginning 2 months ago. FINDINGS: Moderate osteopenia Advanced narrowing medial joint space right knee Moderate narrowing medial joint space left knee Mild to moderate narrowing patellofemoral joints. No fractures IMPRESSION: Advanced narrowing medial joint space right knee Moderate narrowing medial joint space left knee
== END 2025-04-28 09:40 | disposition home or self-care (01) ==
LOC: HODSRG 08:30
PROVIDERS: PCP Physician Assistant; Referring Provider Physician Assistant; Supervising Provider Orthopaedic Surgery Adult Reconstructive Orthopaedic Surgery; Visit Provider Orthopaedic Surgery Adult Reconstructive Orthopaedic Surgery
DX: M17.0 Bilateral primary osteoarthritis of knee (principal); M25.562 Pain in left knee; M25.561 Pain in right knee; I10 Essential (primary) hypertension; E78.00 Pure hypercholesterolemia, unspecified; E66.9 Obesity, unspecified; Z71.3 Dietary counseling and surveillance; Z68.33 Body mass index [BMI] 33.0-33.9, adult
CPT/HCPCS: 20610; 73564; 99203; J1010; J2795; G0463

== ENCOUNTER → 2025-05-19 | Outpatient (CLI) | payer MEDICARE, MEDICAID, SELFPAY ==
--- NOTE | 2025-05-19 09:30 | ECHO_ITS ---
Transthoracic Echo Report Ht (in): 59 Wt (lb): 168 Exam Location: Echo Lab Status: Preadmit Director [employer]iconductor: Ramona De Oliveira Indications: Procedure Performed: BP: 153 / 92 HR: 60 MEASUREMENTS (Male / Female) Normal Values 2D ECHO LV Diastolic Diameter PLAX 4.0 cm 4.2 - 5.9 / 3.9 - 5.3 cm LV Systolic Diameter PLAX 2.8 cm IVS Diastolic Thickness 1.1 cm 0.6 - 1.0 / 0.6 - 0.9 cm LVPW Diastolic Thickness 1.1 cm 0.6 - 1.0 / 0.6 - 0.9 cm LV Relative Wall Thickness 0.6 LVOT Diameter 1.9 cm LA Volume Index 29.3 cm?/m? 16 - 28 cm?/m? Ascending Aorta Diameter 2.8 cm M-MODE AV Cusp Separation MM 1.6 cm DOPPLER AV Peak Velocity 109.0 cm/s AV Peak Gradient 4.8 mmHg AV Mean Gradient 3.0 mmHg AV Velocity Time Integral 22.8 cm LVOT Peak Velocity 84.2 cm/s LVOT Peak Gradient 2.8 mmHg LVOT Velocity Time Integral 18.2 cm LVOT Cardiac Index 1703.3 cm?/min?m? AV Area Cont Eq vti 2.3 cm? AV Area Cont Eq pk 2.2 cm? MV Area PHT 2.8 cm? Mitral E Point Velocity 48.0 cm/s Mitral A Point Velocity 75.6 cm/s Mitral E to A Ratio 0.6 LV E' Lateral Velocity 8.6 cm/s Mitral E to LV E' Lateral Ratio 5.6 LV E' Septal Velocity 4.1 cm/s Mitral E to LV E' Septal Ratio 11.6 TR Peak Velocity 201.0 cm/s TR Peak Gradient 16.2 mmHg PV Peak Velocity 96.4 cm/s PV Peak Gradient 3.7 mmHg FINDINGS Left Ventricle Normal left ventricular size, wall thickness, systolic function with no obvious regional wall motion abnormalities. Normal left ventricular diastolic filling pattern for age. The ejection fraction is visually estimated at 60%. Right Ventricle The right ventricle is normal in size and systolic function. Left Atrium The left atrium is normal by two-dimensional, color flow and Doppler imaging with no structural abnormalities, no thrombus formation present. Right Atrium The right atrium is normal by two-dimensional imaging, color flow and Doppler imaging with no structural abnormalities, no thrombus formation present. Atrial Septum The interatrial septum appears normal with no evidence of a shunt. Aorta The aorta is normal by two-dimensional, color flow and Doppler interrogation. Mitral Valve Mild thickening of the mitral valve leaflets. Mild mitral valve prolapse of the posterior mitral valve leaflet. Trace mitral regurgitation. Aortic Valve The aortic valve is trileaflet and normal by two-dimensional, color flow and Doppler interrogation. There is no significant aortic valve regurgitation. Tricuspid Valve The tricuspid valve is normal by two-dimensional, color flow and Doppler interrogation. There is trace tricuspid valve regurgitation. Pulmonic Valve The pulmonic valve is not well visualized. There is no significant pulmonic valve regurgitation. Vessels The pulmonary artery appears normal. The inferior vena cava pulmonary and hepatic veins appear normal. Pericardium The pericardium is normal by two-dimensional imaging. There is no significant pericardial effusion. CONCLUSIONS Indication: Malignant neoplasm of upper-inner quadrant of left female breast Normal left ventricular size and function. Stage 1 diastolic dysfunction. Estimated ejection fraction 60-65% Normal Rgiht ventricular size and function. RVSP normal 20-25 mm hg. Mild thickening of the mitral valve leaflets.Trace mitral and trace tricuspid regurgitation noted. No significant change since the prior study in 2024 Noe [place] (Electronically Signed) Final Date: 19 May 2025 14:40
== END | disposition home or self-care (01) ==
PROVIDERS: PCP Physician Assistant; Referring Provider Internal Medicine Hematology & Oncology; Visit Provider Internal Medicine Hematology & Oncology
DX: I50.30 Unspecified diastolic (congestive) heart failure (principal); I08.1 Rheumatic disorders of both mitral and tricuspid valves; I05.9 Rheumatic mitral valve disease, unspecified; C50.212 Malignant neoplasm of upper-inner quadrant of left female breast
CPT/HCPCS: 93306

== ENCOUNTER 2025-07-28 09:20 | Outpatient (AMB) | payer MEDICARE, MEDICAID, SELFPAY ==
[2025-07-28 09:48] VITALS: BP 121/79; PULSE 76; RESP 18; TEMP 35.9; O2SAT 95; BMI 33.5
--- NOTE | 2025-07-28 09:48 | ORTHONT_ITS ---
Vital signs 07/28/25 09:48 Height 1.5 m Height Method Stated Weight 75.523 kg Weight Measurement Method Standing Scale BMI 33.5 BP 121/79 Blood Pressure Source Automatic Cuff Blood Pressure Location Left Upper Arm Position Sitting Respiration 18 Pulse 76 Pulse Source Monitor Temp 96.6 F L Temp Source Temporal Artery Scan Pulse Oximetry (%) 95 Oxygen Delivery Method Room Air Med/Allergies Allergies & Medications Allergies bee venom protein (honey bee) Allergy (Severe, Verified 07/28/25 09:48) Swelling of Lip/Tongue/Throat Penicillins Allergy (Severe, Verified 07/28/25 09:48) Swelling of Lip/Tongue/Throat Medication Reconciliation hydrocodone 10 mg-acetaminophen 325 mg tablet 1 tab PO Q6H PRN pain #40 tabs 10/17/23 [Rx Confirmed 07/28/25] carvedilol 3.125 mg tablet 3.125 mg PO BID 09/08/24 [History Confirmed 07/28/25] lisinopril 40 mg tablet 40 mg PO QDAY #30 tabs 09/10/24 [Rx Confirmed 07/28/25] meloxicam 7.5 mg tablet 7.5 mg PO QDAY #45 tabs 04/28/25 [Rx Confirmed 07/28/25] meloxicam 7.5 mg tablet 7.5 mg PO QDAY #45 tabs 05/01/25 [Rx Confirmed 07/28/25] Exam Exam Patient is in no acute distress and is cooperative with the examination today. Breathing is nonlabored. In no respiratory distress. Bilateral extremities were evaluated and demonstrates sensation intact to light touch. Palpable pedal pulses are present. No significant edema is present. Bilateral hips were examined. The patient has no pain with log roll of the hips. Internal rotation to 30 degrees and external rotation to 30 degrees is painless. Negative FADIR. The left knee was examined. The left knee is in varus alignment. Range of motion from 0-115 degrees. Knee is stable to varus and valgus as well as AP translation with <5mm. Patient has a negative McMurrays. There is no pain with patellofemoral compression and no crepitus noted. The knee is tender to palpation medially. The right knee was also examined. The right knee is in varus alignment. Range of motion from 0-120 degrees. Knee is stable to varus and valgus as well as AP translation with <5mm. Patient has a negative McMurrays. There is no pain with patellofemoral compression and no crepitus noted. The knee is tender to palpation medially. Assessment and Plan Problem List (1) Arthritis of both knees: Status: Acute Plan: Patient is a pleasant 64-year-old female with bilateral knee pain and bilateral knee arthritis. She has a lot of pain medially and is in excruciating pain. Recommend knee cortisone injection as patient would like to proceed with conservative treatment at this time. The risks and benefits of the procedure were reviewed with the patient and patient gave verbal consent to continue with the procedure. Procedure: performed by Dr. Kelly Using sterile technique the left knee was thoroughly prepped with alcohol, and approximately 1 cc of Depo-Medrol 80mg/mL and 4 cc of 0.2% ropivacaine was injected without resistance into the medial tibial femoral joint space. The patient tolerated the procedure. Recommend knee cortisone injection as patient would like to proceed with conservative treatment at this time. The risks and benefits of the procedure were reviewed with the patient and patient gave verbal consent to continue with the procedure. Procedure: performed by Dr. Kelly Using sterile technique the Right knee was thoroughly prepped with alcohol, and approximately 1 cc of Depo-Medrol 80mg/mL and 4 cc of 0.2% ropivacaine was injected without resistance into the medial tibial femoral joint space. The patient tolerated the procedure. Office Procedures GNS Level of Care Nursing/Assessment Patient Status: Established Patient Nursing Assessment/Reassesment: Medication Reconciliation, Update PMH in EMR and Vital Signs Coordination of Care: Complex Care and Chronic Disease 1-5, Education Complex Pt/Fam, Consent,records obtained, informed consent, Results/Orders obtained and Staff clarify orders Established Patient Charge Established Patient Point Assignment: 95 Established Patient Point Charge: EP Level 3 (80-115) Surgical Proc/IM SQ injection Minor Surgical Procedure: Yes (BILATERAL KNEE INJECTION) Medication Given Medication Given Medication Given: Yes Documented Dose Given: 2 Route: Infiitration Medication Given Medication Given Medication Given: Yes Documented Dose Given: 8 Route: Infiitration Office Meds methylprednisolone acetate 80 mg/mL suspension for injection Performing Provider: Ronny Kelly MD Performing Location: [facility] [place] Administered by: Ronny Kelly MD on 07/28/25 10:53 Dose Route Admin Location Dispensed Lot Number Expiration Date Pack age [facility] Rn Eligibility 160 mg intra-articular KNEE 2 mL [id number] 03/25/27 [address]-9 [id number] [employer] ropivacaine (PF) 2 mg/mL (0.2 %) injection solution Performing Provider: Ronny Kelly MD Performing Location: [facility] [place] Administered by: Ronny Kelly MD on 07/28/25 10:53 Dose Route Admin Location Dispensed Lot Number Expiration Date Pack age [facility] Rn Eligibility 40 mL Infiltration KNEE 40 mL [id number] 09/25/27 69823-606-22 [id number] [facility] Intake Visit Data Collection New Patient or Established: Established Patient (seen at [facility] [place] within 3 years) Reason for Visit:: PAIN LEFT KNEE Seen by Clinical Staff ONLY (RN/MA): No 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 PCP or OBGYN visit in last 3 months: Yes Hx Now: No Do You Feel Safe at Home: Yes Authorities Contacted: N/A Questionairres Past Medical History Past Medical History Have you ever been diagnosed with any of the following: Neurological Problems Cerebrovascular Accident (CVA): No Transient Ischemic Attacks (TIA): No Dementia: No Alzheimer's Disease: No Parkinson's Disease: No Brain Tumor: No Meningitis: No Seizures: No Epilepsy: No Multiple Sclerosis: No Cerebral Palsy: No Amyotrophic Lateral Sclerosis (ALS/Nisa Gehrig's): No Guillain-[place] Syndrome: No Spina Bifida: No Paralysis: No Peripheral Neuropathy: No Villa's Palsy: No Subdural Hematoma: No Migraine: No Head Trauma: No Spinal Cord Injury: No Traumatic Brain Injury: No Cardiology Problems Myocardial Infarction: No Cardiac Arrhythmia: No Atrial Fibrillation: No Angina: No Heart Murmur: No Coronary Artery Disease: No Atherosclerotic Heart Disease: No Peripheral Vascular Disease: No Hypercholesterolemia: Yes Aneurysm: No Congestive Heart Failure: No Congenital Heart Disease: No Valvular Heart Disease: No Rheumatic Fever: No Cardiomyopathy: No Edema: No Pericarditis: No Cellulitis: No Deep Vein Thrombosis: No Hypertension: Yes Hypotension: No Varicose Veins: No Respiratory Problems Chronic Obstructive Pulmonary Disease (COPD): No Asthma: Yes Bronchitis: No Emphysema: No Pneumonia: Yes Pulmonary Fibrosis: No Tuberculosis: No Pulmonary Embolism: No Pulmonary Edema: No Sleep Apnea: No Stomache/Intestinal Problems Hepatitis: No Cirrhosis: No Pancreatitis: No Celiac Disease: No Gall Bladder Disease: No Gastrointestinal Bleed: No Esophageal Varices: No Guerrero's Esophagus: No Colitis: No Ulcerative Colitis: No Diverticulitis: Yes Diverticulosis: Yes Ulcer: No Colorectal Cancer: No Irritable Bowel: No Crohn's Disease: No Obstructive Bowel: No Hiatal Hernia: No Hemorrhoids: No Gastroesophageal Reflux Disease: No Obesity: Yes Genital/Urinary Problems Renal Disease: No Kidney Stones: Yes Polycystic Kidney Disease: No Neurogenic Bladder: No Inguinal Hernia: No Dialysis: No Reproductive Problems Breast Cancer: Yes Endometriosis: No Pelvic Inflammatory Disease: No Previous Pregnancies: Yes Uterine Prolapse: Yes Musculoskeletal Problems Muscular Dystrophy: No Myasthenia Gravis: No Marfan's Syndrome: No Bone Cancer: No Arthritis: Yes Rheumatoid Arthritis: No Osteoporosis: Yes Degenerative Disk Disease: Yes Gout: Yes Scoliosis: Yes Carpal Tunnel Syndrome: No Fibromyalgia: No Fractures: Yes Degenerative Joint Disease: No Osteomyelitis: No Poliovirus: No Head,Eye,Nose,Throat Problems Cataracts: No Glaucoma: No Blind: No Retinal Detachment: No Macular Degeneration: No Chronic Ear Infections: No Deafness: No Eye Prosthesis: No Endocrine Problems Diabetes Mellitus Type 1: No Diabetes Mellitus Type 2: No Hypoglycemia: No [place]'s Syndrome: No [place]'s Disease: No Hyperthyroidism: No Hypothyroidism: No Parathyroid Disease: No Pituitary Disease: No Systemic Lupus Erythematosus: No Syndrome of Inappropriate Antidiuretic Hormone: No Adrenal Disease: No Graves' Disease: No Blood Problems Anemia: Yes Leukemia: No Hemophilia: No Thalassemia: No Sickle Cell Disease: No Clotting Problems: No Psychologic Problems Schizophrenia: No Recreational Drug Use: No Bipolar Disorder: No Depression: No Anxiety: No Behavior Problems: No Self-Mutilation: No Attention Deficit Disorder: No Attention Deficit Hyperactivity Disorder: No Depression: No Post Traumatic Stress Disorder: No Eating Disorder: No Other Problems Hospitalization: No Down Syndrome: No Autism: No Developmental Delay: No Shingles: No Falls: No Blood Transfusions: No Blood Transfusion Reaction: No Anesthesia Reactions: No Organ Transplant: No Chemotherapy: No Radiation Therapy: No Hyperbaric Therapy: No MRSA: No VRSA: No Vancomycin-Resistant Enterococci: No Human Immunodeficiency Virus (HIV): No Chicken Pox: Yes Rubella ([place] Measles): No Pertussis: No Clostridium Difficile: No Cancer: Yes Cervical Cancer: No Lung Cancer: No Ovarian Cancer: No Surgical History Carotid Endarterectomy: No Coronary Artery Bypass Graft: No Valve Replacement: No Hysterectomy: No Pacemaker: No Thyroidectomy: No Subjective Visit Visit for: follow up visit, knee and injections Immunization / Flu Flu Vaccine in the Last 12 Months: Yes Flu Vaccine Exclusion Criteria: Already Received History of Present Illness Chief complaint: PAIN LEFT KNEE Date of injury / onset of symptoms: 2 MONTHS He is a pleasant 64-year-old female with bilateral knee pain. She has a history of breast cancer. Her pain is medial. She did well with the last injections. She has had an infusion and this really triggered her pain for her breast cancer. She is able to walk but she has a lot of pain medially Personal History Occupation: DISABLED Red flag PMH: none BMI Counceling provided: Yes Pain Pain level (0-10): 10 Pain location: anterior Pain quality: sharp Pain timing: night, increases with activity and stairs Associated signs & symptoms: stiffness Ambulatory data Ambulatory device: cane Treatments Number of previous injections: 0 Improvement with previous injections: No Number of Physical Therapy sessions: 0 Improvement with PT: No Improvement with NSAIDS: yes Review of Systems Review of Systems: All systems negative unless otherwise noted in HPI.
== END 2025-07-28 10:14 | disposition home or self-care (01) ==
LOC: HODSRG 09:20
PROVIDERS: PCP Physician Assistant; Referring Provider Physician Assistant; Supervising Provider Orthopaedic Surgery Adult Reconstructive Orthopaedic Surgery; Visit Provider Orthopaedic Surgery Adult Reconstructive Orthopaedic Surgery
DX: M25.562 Pain in left knee (principal); M25.561 Pain in right knee; M17.0 Bilateral primary osteoarthritis of knee; Z85.3 Personal history of malignant neoplasm of breast; I10 Essential (primary) hypertension; E66.9 Obesity, unspecified; Z68.33 Body mass index [BMI] 33.0-33.9, adult
CPT/HCPCS: 20610; 99213; J1010; J2795; G0463